=== PATIENT | male | born 1955 | race Caucasian/White ===

== ENCOUNTER 2023-07-05 13:15 | Inpatient (IN) ==
--- NOTE | 2023-07-05 13:55 | Emergency Department Note ---
Impression & Plan Pancreatitis, History of laparoscopic cholecystectomy, Transaminitis ED Provider Note NAME: JAYLEN DUNAWAY AGE: 68 SEX: M : 1955 ARRIVES VIA: Walk-In INFORMANT: Patient, ED PROVIDER(S): Vipin Vega MD CHIEF COMPLAINT: Abdominal pain MEDICAL DECISION MAKING: Patient presents due to concern for abdominal pain in the setting of recent cholecystectomy. IV was established and blood work is obtained along with CT abdomen pelvis. Patient declined any narcotic medication but did receive IV affirmative and IV fluids. Patient did receive IV Zofran. Blood shows a normal white count. The patient's kidney function is grossly unremarkable. Patient CT does show fluid collection near his NITIN drain which may be a bile leak. The patient does have pancreatitis with a lipase greater than 4000. I did speak with on-call general surgery Dr. Merino who recommended admission IV Zosyn HIDA scan and possible ERCP. I did speak the on-call hospital service CARLOS Romano the patient was admitted by Dr. Guillen. Prior /Outside records reviewed: I reviewed a discharge summary from [facility]. The patient did have a recent cholecystectomy for acalculous cholecystitis. The patient also suffered a hepatic capsule tear. Patient did have a NITIN drain in place. Differential diagnosis: Appendicitis, testicular torsion, infections, diverticulitis, UTI, obstruction, mesenteric ischemia, aortic pathology, inflammatory bowel disease, renal colic, PUD, pancreatitis, biliary pathology, hernia, volvulus, constipation, as well as other pathologies. Diagnostics, as interpreted by me: ECG: None Cardiac monitoring: An order was placed for continuous cardiac monitoring. The monitor shows a rate of 77 with sinus rhythm. Patient was placed on pulse oximetry Medical decision rules: None Imaging studies: See below I informally reviewed the patient's CT of the abdomen pelvis which does show pancreatitis. HPI: Patient presents due to concern for abdominal pain in the setting of recent cholecystectomy. The patient does have a NITIN drain in place and was told that he did have a "corrie" to the liver which required a NITIN drain and cautery. Patient states that he did go to [facility] emergency department today and did not appreciate the commentary from the emergency department physician and thus left and presented here. Patient denies any chest pains or shortness of breath he has had associated nausea but no vomiting. Patient states that he was receiving for amount of Dilaudid and morphine during his most recent hospitalization which was last week but does not want any narcotics. Patient has had bowel movements. The patient's drain has been draining appropriately. Patient describes his pain is more in the upper abdomen PAST MEDICAL HISTORY: See Below PAST SURGICAL HISTORY: See Below SOCIAL HISTORY: See Below HOME MEDICATIONS: See Below ALLERGIES: See Below VITALS: See Below PHYSICAL EXAMINATION: GENERAL: NAD, non-toxic. EYE EXAM: Normal conjunctiva. PERRL, no anisocoria and EOM's grossly intact w/o pain. OROPHARYNX: Moist mucus membranes, grossly normal dentition. NECK: Supple, no nuchal rigidity, no adenopathy, non-tender. No signs of meningismus. FROM of the neck with good chin to chest and neck extension. No stridor. LUNGS: Clear to auscultation. Normal chest wall mechanics. HEART: NSR, no MRG. ABDOMEN: Abdomen soft, diffuse moderate tenderness most prominent in the epigastrium and right upper quadrants, guarding noted. No rebound. Ecchymosis that is periumbilical in nature. Right-sided abdominal NITIN drain in place draining serosanguineous fluid not grossly bloody and no evidence of purulent drainage. BACK: No CVA TTP. SKIN: Bruising noted to the abdomen. UPPER EXTREMITIES: Upper extremities are grossly normal. LOWER EXTREMITIES: Grossly normal, no edema. NEURO EXAM: A&O x3, cranial nerves II-XII grossly intact, normal speech, moves all 4 extremities. Past Med/Surg History Medical History ADHD Beta thalassemia trait COPD (chronic obstructive pulmonary disease) Depression GERD (gastroesophageal reflux disease) Osteoporosis Paget's disease of bone Tobacco abuse Surgical History History of hernia repair History of laparoscopic cholecystectomy Social History Smoking Status: Current every day smoker Tobacco Type: Cigarettes Cigarettes Per Day: 1 1/2 packs; Second Hand Exposure: No; Do You Dip or Chew Tobacco: No; Tobacco Cessation Education Requested by Patient: No Hx Alcohol Use: No Hx Substance Use: No Preferred Language: German Communication Ability: Effective Rehabilitation Technician Required: No Beliefs That Will Affect Care: None Current Living Situation: Spouse Other Information That Helps Us Care for You: No Feels Safe at Home: Yes Safety Concerns: Feels Safe At This Time Allergies Allergies Allergy/AdvReac Type Severity Reaction Status Date / Time coffee (Coffea arabica) AdvReac Dizziness Verified 07/05/23 23:31 Home Meds Home Medications Medication Instructions Recorded Confirmed albuterol sulfate 90 mcg/actuation 1 inh inhalation DAILY PRN Wheezing 07/05/23 07/05/23 aerosol inhaler (Proventil HFA) fluticasone furoate 200 1 inh inhalation QAM 07/05/23 07/05/23 mcg-vilanterol 25 mcg/dose inhalation powder (Breo Ellipta) loratadine 10 mg tablet 10 mg PO QAM PRN Other 07/05/23 07/05/23 methylphenidate HCl 20 mg tablet 20 mg PO TID 07/05/23 07/05/23 naloxone 4 mg/actuation nasal spray See Rx Instructions .Route .COMPLEX 07/05/23 07/05/23 naproxen 500 mg tablet 500 mg PO Q12H 07/05/23 07/05/23 omeprazole 40 mg capsule,delayed 40 mg PO DAILY 07/05/23 07/05/23 release oxycodone 5 mg tablet See Rx Instructions .Route .COMPLEX 07/05/23 07/05/23 paroxetine HCl 10 mg tablet 10 mg PO DAILY 07/05/23 07/05/23 simethicone 125 mg chewable tablet 125 mg PO QID PRN other 07/05/23 07/05/23 Results & Data (ED) Vital Signs Vital Signs - 24 hr 07/05/23 13:22 07/05/23 14:23 07/05/23 14:20 Temperature 36.5 C Temperature Source Temporal Artery Scan Pulse Rate 71 76 Pulse Rate from SpO2 Sensor Respiratory Rate 19 Respiratory Effort / Characteristics Non-Labored Blood Pressure 155/66 H Blood Pressure Mean 95 Pulse Oximetry 99 98 Oxygen Delivery Method Room Air Room Air Sepsis Recent Fever Within 48 Hours No Sepsis New/Unexplained Change in Mental Status N/A Sepsis Action Taken by Nursing No Action Required 07/05/23 14:22 07/05/23 14:30 07/05/23 14:30 Temperature Temperature Source Pulse Rate 75 83 Pulse Rate from SpO2 Sensor 74 81 Respiratory Rate 20 25 H Respiratory Effort / Characteristics Blood Pressure 158/71 H Blood Pressure Mean 114 Pulse Oximetry 96 94 Oxygen Delivery Method Sepsis Recent Fever Within 48 Hours Sepsis New/Unexplained Change in Mental Status Sepsis Action Taken by Nursing 07/05/23 15:00 07/05/23 15:01 07/05/23 15:01 Temperature Temperature Source Pulse Rate 82 89 Pulse Rate from SpO2 Sensor 84 89 Respiratory Rate 22 25 H Respiratory Effort / Characteristics Blood Pressure 149/60 H Blood Pressure Mean 81 Pulse Oximetry 79 L 95 Oxygen Delivery Method Sepsis Recent Fever Within 48 Hours Sepsis New/Unexplained Change in Mental Status Sepsis Action Taken by Nursing 07/05/23 15:30 07/05/23 15:30 07/05/23 16:29 Temperature Temperature Source Pulse Rate 80 Pulse Rate from SpO2 Sensor 81 Respiratory Rate 27 H Respiratory Effort / Characteristics Blood Pressure 136/110 H 141/61 H Blood Pressure Mean 124 91 Pulse Oximetry 95 Oxygen Delivery Method Sepsis Recent Fever Within 48 Hours Sepsis New/Unexplained Change in Mental Status Sepsis Action Taken by Nursing 07/05/23 16:29 07/05/23 16:30 07/05/23 16:30 Temperature Temperature Source Pulse Rate Pulse Rate from SpO2 Sensor 90 81 Respiratory Rate Respiratory Effort / Characteristics Blood Pressure 149/88 H Blood Pressure Mean 118 Pulse Oximetry 96 95 Oxygen Delivery Method Room Air Sepsis Recent Fever Within 48 Hours Sepsis New/Unexplained Change in Mental Status Sepsis Action Taken by Group Home Medications Current Medication List: was personally reviewed by me Laboratory Data Attestation: I reviewed the patient's lab results. 07/05/23 14:17 07/05/23 14:17 Lab Results 07/05/23 07/05/23 07/05/23 Range/Units 14:17 14:17 14:25 WBC 10.57 (4.8-10.8) K/ul RBC 4.96 (4.70-6.10) M/uL Hgb 11.4 L (14.0-18.0) g/dl POC Hgb (14.0-18.0) g/dl Hct 35.1 L (42.0-52.0) % POC Hct (42-52) % MCV 70.8 L (80.0-100.0) fL MCH 23.0 L (25.0-34.0) pg MCHC 32.5 (32.0-36.0) g/dL RDW Std Deviation 39.0 (36.4-46.3) fL RDW Coeff of Jackie 15.6 H (11.5-14.5) % Plt Count 224 (130-400) K/uL MPV 12.3 (9.4-12.4) fL Immature Gran % (Auto) 0.5 % Neut % (Auto) 75.4 % Lymph % (Auto) 17.7 % Mclean % (Auto) 5.7 % Eos % (Auto) 0.5 % Baso % (Auto) 0.2 % Neut # (Auto) 7.98 H (1.40-6.50) K/uL Lymph # (Auto) 1.87 (1.2-3.4) K/uL Mclean # (Auto) 0.60 H (0.11-0.59) K/uL Eos # (Auto) 0.05 (0-0.50) K/uL Baso # (Auto) 0.02 (0-0.2) K/uL Immature Gran # (Auto) 0.05 (0.01-0.20) K/uL POC Sodium (135-144) mmol/L Sodium 139 (136-145) mmol/L POC Potassium (3.3-5.0) mmol/L Potassium 3.3 L (3.5-5.1) mmol/L POC Chloride (101-112) mmol/L Chloride 104 (98-107) mmol/L Carbon Dioxide 28 (21-32) mmol/L POC Total CO2 (24-31) mmol/L Anion Gap 7 (3-11) POC Anion Gap (16-25) mmol/L POC BUN (7-18) mg/dl BUN 12 (6-23) mg/dl Creatinine 0.81 (0.6-1.4) mg/dl POC Creatinine (0.6-1.3) mg/dl Est Cr Clr Drug Dosing 79.3 ml/min Est GFR ( Amer) 104.4 ml/min Est GFR (Non-Af Amer) 90.0 ml/min BUN/Creatinine Ratio 14.8 (10-20) Glucose 91 (70-99(Fasting)) mg/dl POC Glucose (other) (70-99) mg/dl Calcium 8.6 (8.6-10.3) mg/dl POC Ioniz Calcium Emily (1.12-1.32) mmol/l Magnesium 1.7 (1.7-2.4) mg/dl Total Bilirubin 2.5 H (0.2-1.0) mg/dl AST 496 H (13-39) U/L ALT 297 H (7-52) U/L Alkaline Phosphatase 211 H (34-104) U/L Total Protein 7.1 (6.0-8.3) gm/dl Albumin 3.7 (3.4-5.0) gm/dl Globulin 3.4 (2.5-4.0) gm/dl Albumin/Globulin Ratio 1.1 (0.9-2) Lipase 4985 H (11-82) U/L Urine Color Yellow Urine Appearance Clear (Clear) Urine pH 8.5 H (4.5-7.5) Ur Specific [place] 1.009 (1.000-1.030) Urine Protein Negative (Negative) Urine Glucose (UA) Negative (Negative) Urine Ketones Negative (Negative) Urine Blood Negative (Negative) Urine Nitrite Negative (Negative) Urine Bilirubin Negative (Negative) Urine Urobilinogen Positive H (Negative) Ur Leukocyte Esterase Negative (Negative) 07/05/23 Range/Units 14:45 WBC (4.8-10.8) K/ul RBC (4.70-6.10) M/uL Hgb (14.0-18.0) g/dl POC Hgb 12.9 L (14.0-18.0) g/dl Hct (42.0-52.0) % POC Hct 38 L (42-52) % MCV (80.0-100.0) fL MCH (25.0-34.0) pg MCHC (32.0-36.0) g/dL RDW Std Deviation (36.4-46.3) fL RDW Coeff of Jackie (11.5-14.5) % Plt Count (130-400) K/uL MPV (9.4-12.4) fL Immature Gran % (Auto) % Neut % (Auto) % Lymph % (Auto) % Mclean % (Auto) % Eos % (Auto) % Baso % (Auto) % Neut # (Auto) (1.40-6.50) K/uL Lymph # (Auto) (1.2-3.4) K/uL Mclean # (Auto) (0.11-0.59) K/uL Eos # (Auto) (0-0.50) K/uL Baso # (Auto) (0-0.2) K/uL Immature Gran # (Auto) (0.01-0.20) K/uL POC Sodium 142 (135-144) mmol/L Sodium (136-145) mmol/L POC Potassium 3.3 (3.3-5.0) mmol/L Potassium (3.5-5.1) mmol/L POC Chloride 103 (101-112) mmol/L Chloride (98-107) mmol/L Carbon Dioxide (21-32) mmol/L POC Total CO2 26 (24-31) mmol/L Anion Gap (3-11) POC Anion Gap 18.0 (16-25) mmol/L POC BUN 10 (7-18) mg/dl BUN (6-23) mg/dl Creatinine (0.6-1.4) mg/dl POC Creatinine 0.8 (0.6-1.3) mg/dl Est Cr Clr Drug Dosing ml/min Est GFR ( Amer) ml/min Est GFR (Non-Af Amer) ml/min BUN/Creatinine Ratio (10-20) Glucose (70-99(Fasting)) mg/dl POC Glucose (other) 93 (70-99) mg/dl Calcium (8.6-10.3) mg/dl POC Ioniz Calcium Emily 1.15 (1.12-1.32) mmol/l Magnesium (1.7-2.4) mg/dl Total Bilirubin (0.2-1.0) mg/dl AST (13-39) U/L ALT (7-52) U/L Alkaline Phosphatase (34-104) U/L Total Protein (6.0-8.3) gm/dl Albumin (3.4-5.0) gm/dl Globulin (2.5-4.0) gm/dl Albumin/Globulin Ratio (0.9-2) Lipase (11-82) U/L Urine Color Urine Appearance (Clear) Urine pH (4.5-7.5) Ur Specific [place] (1.000-1.030) Urine Protein (Negative) Urine Glucose (UA) (Negative) Urine Ketones (Negative) Urine Blood (Negative) Urine Nitrite (Negative) Urine Bilirubin (Negative) Urine Urobilinogen (Negative) Ur Leukocyte Esterase (Negative) Administered Medications Fluticasone/Vilanterol (Fluticasone/Vilanterol 200/25mcg 14 Puffs/Inhaler) 1 puffs INH QAM ÁNGEL Stop: 08/05/23 08:59 Last Admin: 07/06/23 08:51 Dose: 1 puffs Documented By: JAMILAH Lactated Ringer's (Lr) 1,000 mls @ 150 mls/hr IV .Q6H40M ÁNGEL Stop: 08/04/23 19:02 Last Admin: 07/06/23 08:51 Dose: 150 mls/hr Documented By: Infusion: 07/06/23 08:51 Dose: 150 mls/hr Documented By: Admin: 07/06/23 02:27 Dose: 150 mls/hr Documented By: Infusion: 07/06/23 02:27 Dose: 150 mls/hr Documented By: Admin: 07/05/23 19:56 Dose: 150 mls/hr Documented By: ERNIE Piperacillin Sod/Tazobactam (Sod 4.5 gm/ Dextrose) 120 mls @ 30 mls/hr IV Q8H ÁNGEL; Protocol Stop: 07/16/23 00:00 Last Admin: 07/06/23 07:49 Dose: 30 mls/hr Documented By: Infusion: 07/06/23 03:58 Dose: 0 mls/hr Documented By: Admin: 07/05/23 23:58 Dose: 30 mls/hr Documented By: ERNIE Methylphenidate HCl (Methylphenidate Hcl 10 Mg Tablet) 20 mg PO TID@0700,1100,1500 ÁNGEL Stop: 07/19/23 20:59 Last Admin: 07/06/23 08:52 Dose: Not Given Documented By: JAMILAH Paroxetine HCl (Paroxetine Hcl 10 Mg Tab) 10 mg PO DAILY ÁNGEL Stop: 08/05/23 08:59 Last Admin: 07/06/23 08:52 Dose: 10 mg Documented By: JAMILAH Discontinued Medications Sodium Chloride (Nss 1000ml) 1,000 mls @ 999 mls/hr IV .Q1H1M STA Stop: 07/05/23 15:20 Last Infusion: 07/05/23 16:18 Dose: 0 mls/hr Documented By: Admin: 07/05/23 14:45 Dose: 999 mls/hr Documented By: ENRICO Acetaminophen (Ofirmev) 1,000 mg in 100 mls @ 400 mls/hr IV NOW STA Stop: 07/05/23 14:34 Last Infusion: 07/05/23 16:17 Dose: 0 mls/hr Documented By: Admin: 07/05/23 14:47 Dose: 400 mls/hr Documented By: ENRICO Piperacillin Sod/Tazobactam Sod (Zosyn) 4.5 gm in 120 mls @ 240 mls/hr IV NOW ONE Stop: 07/05/23 16:55 Last Infusion: 07/05/23 18:21 Dose: 0 mls/hr Documented By: Admin: 07/05/23 17:47 Dose: 240 mls/hr Documented By: ENRICO Potassium Chloride (K Amadou / Wtr) 10 meq in 100 mls @ 100 mls/hr IV Q1H ÁNGEL Stop: 07/05/23 21:59 Last Infusion: 07/06/23 00:00 Dose: 0 mls/hr Documented By: Admin: 07/05/23 22:58 Dose: 100 mls/hr Documented By: Infusion: 07/05/23 22:57 Dose: 100 mls/hr Documented By: Admin: 07/05/23 21:57 Dose: 100 mls/hr Documented By: Infusion: 07/05/23 21:57 Dose: 100 mls/hr Documented By: Admin: 07/05/23 20:59 Dose: 100 mls/hr Documented By: Infusion: 07/05/23 20:56 Dose: 100 mls/hr Documented By: Admin: 07/05/23 19:56 Dose: 100 mls/hr Documented By: EGMaile Ioversol (Optiray 320 100ml) 92 ml IV ONCE ONE Stop: 07/05/23 15:16 Last Admin: 07/05/23 15:15 Dose: 92 ml Documented By: MARCOS Ondansetron HCl (Ondansetron Inj 2 Mg/Ml 2 Ml Vial) 4 mg IV NOW STA Stop: 07/05/23 14:21 Last Admin: 07/05/23 14:46 Dose: 4 mg Documented By: ENRICO Imaging Data Radiologist's Impression: Abdomen/Pelvis CT 07/05/23 14:[address] WITH IV CONTRAST CT DOSE: 1042.06 mGy.cm HISTORY: Acute right upper quadrant abdominal pain h/o of payton and post op bleeding, NITIN in place TECHNIQUE: Multiaxial CT images of the abdomen and pelvis were performed following the IV administration of 92 cc of Optiray, A dose lowering technique was utilized adhering to the principles of ALARA. COMPARISON STUDY: None. FINDINGS: Mild subsegmental bibasilar atelectasis/scarring. A few scattered low suspicion solid pulmonary nodules measuring up to 3 mm. Trace right pleural effusion. Unremarkable spleen and adrenal glands. Mild interstitial peripancreatic edema of the pancreatic head, uncinate process and neck. Mild wall thickening of the distal stomach and duodenum. There are a few subcentimeter hypodensities noted within the liver which are too small to characterize and may represent cysts. Patent portal vein. Cholecystectomy clips within the maryan hepatis. Mild wall thickening and enhancement within the common bile duct. Postoperative fluid collection within the maryan hepatis measures 5.3 x 7.6 x 3.5 cm containing a few foci of air. Surg ical drainage catheter courses along the anterior aspect of this collection with distal tip projected superiorly. Additional trace fluid tracks along the pancreatic or duodenal groove and into the right paracolic gutter. There are a few nonobstructing calculi in the left kidney measuring up to 3 mm. Bilateral renal cysts. No hydronephrosis. Prostatomegaly. Moderate bladder wall thickening with partial distention. Atherosclerosis of the aorta. Retroaortic left renal vein. No lymphadenopathy. Tiny hiatal hernia with mild distal esophageal wall thickening. Moderate fecal retention. Normal appendix. No acute fracture. Pagetoid changes of the right bony pelvis. IMPRESSION: 1. Postoperative changes compatible with recent laparoscopic cholecystectomy. There is a postoperative fluid collection within the maryan hepatis measuring up to 7.6 cm with a surgical drainage catheter coursing along the anterior aspect of the collection. Findings could be correlated with nuclear medicine hepatobil iary scan if there is clinical concern for a bile leak. 2. Findings suggestive of associated mild acute pancreatitis. 3. Borderline enlarged lymph nodes within the maryan hepatis are likely reactive. 4. No bowel obstruction. 5. Normal appendix. 6. Left nephrolithiasis. 7. Trace right pleural effusion. 8. Pagetoid osseous changes of the bony pelvis. ACT 112: Negative or not required by law. The above report was generated using voice recognition software. It may contain grammatical, syntax or spelling errors. Electronically signed by: Amauri Salter M.D. 07/05/2023 3:48 PM Discharge Plan Visit Data Chief Complaint: Abdominal Pain Stated Complaint: JUST HAD SURGURY, PAIN IN ABDOMEN, PAIN IN BACK ED Provider: Vipin Vega Discharge Problem: Pancreatitis, History of laparoscopic cholecystectomy, Transaminitis Patient Disposition: Admitted As Inpatient Discharge Instructions Interventions: ED Discharge Assessment Last Done: 07/05/23 18:06
[2023-07-05] MEDS ORDERED: ACETAMINOPHEN 1,000 MG/100 ML VIAL IV STA (14:20)
[2023-07-05] MEDS ORDERED: SODIUM CHLORIDE 0.9% 1,000 ML IV STA (14:20)
[2023-07-05] MEDS ORDERED: ONDANSETRON INJ 2 MG/ML 2 ML VIAL IV STA (14:20)
[2023-07-05 14:37] LABS: Basophils # (auto) 0.02 K/uL (0-0.2); Basophils % (auto) 0.2 %; Eosinophils # (auto) 0.05 K/uL (0-0.50); Eosinophils % (auto) 0.5 %; Hematocrit (blood only) 35.1 % (42.0-52.0); Hemoglobin 11.4 g/dl (14.0-18.0); Immature Granulocytes # (auto) 0.05 K/uL (0.01-0.20); Immature Granulocytes % (auto) 0.5 %; Lymphocytes # (auto) 1.87 K/uL (1.2-3.4); Lymphocytes % (auto) 17.7 %; Mean Corpuscular Hgb Conc 32.5 g/dL (32.0-36.0); Mean Corpuscular Volume 70.8 fL (80.0-100.0); Mean Platelet Volume 12.3 fL (9.4-12.4); Monocytes % (auto) 5.7 %; Neutrophils # (auto) 7.98 K/uL (1.40-6.50); Neutrophils % (auto) 75.4 %; Platelet Count 224 K/uL (130-400); RDW Coefficient of Variation 15.6 % (11.5-14.5); Red Blood Count 4.96 M/uL (4.70-6.10); White Blood Count 10.57 K/ul (4.8-10.8)
[2023-07-05 14:39] LABS: Appearance Urine Clear (Clear); Bilirubin Urine Negative (Negative); Blood Urine Negative (Negative); Color Urine Yellow; Glucose Urine UA Negative (Negative); Ketones Urine Negative (Negative); Leukocyte Esterase Urine Negative (Negative); Nitrite Urine Negative (Negative); Protein Urine Negative (Negative); Specific Gravity Urine 1.009 (1.000-1.030); Urobilinogen Urine Positive (Negative); pH Urine 8.5 (4.5-7.5)
[2023-07-05 14:52] LABS: Albumin Level 3.7 gm/dl (3.4-5.0); Bilirubin,Total 2.5 mg/dl (0.2-1.0); Calcium 8.6 mg/dl (8.6-10.3); Potassium 3.3 mmol/L (3.5-5.1)
[2023-07-05 14:58] LABS: BUN Creatinine Ratio 14.8 (10-20); Creatinine Clr Calc Pharmacy 79.3 ml/min; Est GFR (African American) 104.4 ml/min
[2023-07-05] MEDS ORDERED: OPTIRAY 320 100ml IV ONE (15:15)
[2023-07-05 15:49] LABS: Albumin Globulin Ratio 1.1 (0.9-2); Globulin 3.4 gm/dl (2.5-4.0); Total Protein 7.1 gm/dl (6.0-8.3)
--- NOTE | 2023-07-05 15:50 | CT Scan Report ---
ABDOMEN AND PELVIS CT WITH IV CONTRAST CT DOSE: 1042.06 mGy.cm HISTORY: Acute right upper quadrant abdominal pain h/o of payton and post op bleeding, NITIN in place TECHNIQUE: Multiaxial CT images of the abdomen and pelvis were performed following the IV administrat ion of 92 cc of Optiray, A dose lowering technique was utilized adhering to the principles of ALARA. COMPARISON STUDY: None. FINDINGS: Mild subsegmental bibasilar atelectasis/scarring. A few scattered low suspicion solid pulmonary nodul es measuring up to 3 mm. Trace right pleural effusion. Unremarkable spleen and adrenal glands. Mild i nterstitial peripancreatic edema of the pancreatic head, uncinate process and neck. Mild wall thicken ing of the distal stomach and duodenum. There are a few subcentimeter hypodensities noted within the liver which are too small to characterize and may represent cysts. Patent portal vein. Cholecystectomy clips within the maryan hepatis. Mild wall thickening and enhancement within the commo n bile duct. Postoperative fluid collection within the maryan hepatis measures 5.3 x 7.6 x 3.5 cm cont aining a few foci of air. Surgical drainage catheter courses along the anterior aspect of this collec tion with distal tip projected superiorly. Additional trace fluid tracks along the pancreatic or duod enal groove and into the right paracolic gutter. There are a few nonobstructing calculi in the left kidney measuring up to 3 mm. Bilateral renal cysts . No hydronephrosis. Prostatomegaly. Moderate bladder wall thickening with partial distention. Athero sclerosis of the aorta. Retroaortic left renal vein. No lymphadenopathy. Tiny hiatal hernia with mild distal esophageal wall thickening. Moderate fecal retention. Normal appendix. No acute fracture. Pag etoid changes of the right bony pelvis. IMPRESSION: 1. Postoperative changes compatible with recent laparoscopic cholecystectomy. There is a postoperativ e fluid collection within the maryan hepatis measuring up to 7.6 cm with a surgical drainage catheter coursing along the anterior aspect of the collection. Findings could be correlated with nuclear medic ine hepatobiliary scan if there is clinical concern for a bile leak. 2. Findings suggestive of associated mild acute pancreatitis. 3. Borderline enlarged lymph nodes within the maryan hepatis are likely reactive. 4. No bowel obstruction. 5. Normal appendix. 6. Left nephrolithiasis. 7. Trace right pleural effusion. 8. Pagetoid osseous changes of the bony pelvis. ACT 112: Negative or not required by law. The above report was generated using voice recognition software. It may contain grammatical, syntax o r spelling errors. Electronically signed by: Amauri Salter M.D. 07/05/2023 3:48 PM
[2023-07-05] MEDS ORDERED: PIPERACILLIN/TAZOBACTAM 4.5 GM/120 ML BAG IV ONE (16:26)
[2023-07-05 18:43] LABS: Magnesium 1.7 mg/dl (1.7-2.4)
--- NOTE | 2023-07-05 18:46 | History & Physical Report ---
Date of Service July 05, 2023 Assessment & Plan (1) History of laparoscopic cholecystectomy: (2) Transaminitis: (3) Pancreatitis: Plan: Admit to [facility] Patient presenting from home with reports of abdominal pain. S/p laparoscopic cholecystectomy on 07/[address] Aguilera at [facility]. In the ED, patient found to have transaminitis and elevated lipase. CT ABD/pelvis showing postoperative changes compatible with recent laparoscopic cholecystectomy. There is a postoperative fluid collection within the maryan hepatis measuring up to 7.6 cm with a surgical drainage catheter coursing along the anterior aspect of the collection. Findings could be correlated with nuclear medicine hepatobiliary scan if there is clinical concern for a bile leak. Findings suggestive of associated mild acute pancreatitis. N.p.o., IVF, pain and nausea control Obtain HIDA scan General surgery consult, case discussed with Dr. Merino If HIDA scan shows bile leak, will need GI consult and ERCP S/p Zosyn in the ED, continue with (4) COPD (chronic obstructive pulmonary disease): (5) Tobacco abuse: Plan: No signs of acute exacerbation Tobacco cessation advised, nicotine patch provided (6) GERD (gastroesophageal reflux disease): Plan: IV PPI (7) ADHD: (8) Depression: Plan: Stable, continue methylphenidate and paroxetine DVT PROPHYLAXIS SCDs in the event patient needs invasive procedure Patient seen in collaboration with Dr. Guillen. I spent a total of 75 minutes coordinating, documenting, and providing care for this patient excluding time spent in the performance of separately billed services. This included personally reviewing all current laboratories and imaging studies, medication reconciliation, outpatient chart review, and discussion with specialists. History of Present Illness Chief Complaint: Abdominal pain Primary Care Provider: Yelitza Pendleton PA-C 68-year-old male with PMH COPD, tobacco abuse, GERD, osteoporosis, Paget disease, depression, ADHD, beta thalassemia trait, and other problems as below who presents to the ED for evaluation of abdominal pain. History obtained from the patient and at the bedside as well as review of outpatient PCP and recent inpatient records. Patient seen at [facility] ED on 06/30 for abdominal pain and was diagnosed with biliary colic. Patient previously scheduled for elective cholecystectomy later in the year. Was evaluated by general surgery on 06/30 who felt it was reasonable to maintain that plan. Patient's abdominal pain returned, he called the surgeon's office, who subsequently directly admitted him for laparoscopic cholecystectomy on 07/02. Patient did have a capsular tear in the surgery and was monitored for 24 hours and was discharged home on 07/04 with NITIN drain in place. Patient reports that this morning at 7 AM, he had sudden onset abdominal pain. Patient describes the pain as diffuse. He reports associated nausea however no vomiting. He reports feeling chills however did not take his temperature. He was initially seen at [facility] ED however eloped and came to [facility] for evaluation. Patient denies chest pain or shortness of breath. No lightheadedness, dizziness, diaphoresis, syncopal events. He denies urinary symptoms. In the ED, patient is hemodynamically stable. Labs show WBC 10.5 K, transaminitis, lipase 4900. CT ABD/pelvis shows Postoperative changes compatible with recent laparoscopic cholecystectomy. There is a postoperative fluid collection within the maryan hepatis measuring up to 7.6 cm with a surgical drainage catheter coursing along the anterior aspect of the collection. Findings could be correlated with nuclear medicine hepatobiliary scan if there is clinical concern for a bile leak. Findings suggestive of associated mild acute pancreatitis. Patient was given IV Tylenol, IV Zofran, IV Zosyn, IVF. Home Medications Medication Instructions Recorded Confirmed Type albuterol sulfate 90 mcg/actuation 1 inh inhalation DAILY PRN Wheezing 07/05/23 07/05/23 History aerosol inhaler (Proventil HFA) fluticasone furoate 200 1 inh inhalation QAM 07/05/23 07/05/23 History mcg-vilanterol 25 mcg/dose inhalation powder (Breo Ellipta) loratadine 10 mg tablet 10 mg PO QAM PRN Other 07/05/23 07/05/23 History methylphenidate HCl 20 mg tablet 20 mg PO TID 07/05/23 07/05/23 History naloxone 4 mg/actuation nasal spray See Rx Instructions .Route .COMPLEX 07/05/23 07/05/23 History naproxen 500 mg tablet 500 mg PO Q12H 07/05/23 07/05/23 History omeprazole 40 mg capsule,delayed 40 mg PO DAILY 07/05/23 07/05/23 History release oxycodone 5 mg tablet See Rx Instructions .Route .COMPLEX 07/05/23 07/05/23 History paroxetine HCl 10 mg tablet 10 mg PO DAILY 07/05/23 07/05/23 History simethicone 125 mg chewable tablet 125 mg PO QID PRN other 07/05/23 07/05/23 History Past Med/Surg History Medical History (Updated 07/05/23 @ 20:22 by CARLOS Tapia) ADHD Beta thalassemia trait COPD (chronic obstructive pulmonary disease) Depression GERD (gastroesophageal reflux disease) Osteoporosis Paget's disease of bone Tobacco abuse Surgical History History of hernia repair History of laparoscopic cholecystectomy Social History Smoking Status: Current every day smoker Tobacco Type: Cigarettes Cigarettes Per Day: 1 1/2 packs; Second Hand Exposure: No; Do You Dip or Chew Tobacco: No; Tobacco Cessation Education Requested by Patient: No Hx Alcohol Use: No Hx Substance Use: No Preferred Language: Swedish Communication Ability: Effective Supervisor Malted Milk Required: No Beliefs That Will Affect Care: None Current Living Situation: Spouse Other Information That Helps Us Care for You: No Feels Safe at Home: Yes Safety Concerns: Feels Safe At This Time Review of Systems Review of Systems: ROS per HPI, all other systems reviewed and negative Physical Exam Constitutional: WD/WN, vitals as above Eyes: PERRL, conjunctivae normal, anicteric sclerae ENMT: external ear and nose normal, oropharynx normal Respiratory: normal respiratory effort, lungs clear to auscultation Cardiovascular: Rate/Rhythm: regular rate and regular rhythm Vessels: normal peripheral pulses Extremities: no edema Gastrointestinal (Abdomen): Inspection/Auscultation: normal bowel sounds Percussion/Palpation: + abdomen tender (diffusely tender to palpation) and abdomen soft RUQ Drain in place draining serosanguineous drainage, dressings present over laparoscopic incision sites, ecchymosis across the mid/lower abdomen Musculoskeletal: no cyanosis or clubbing, extremities motor strength 5/5 Skin: no rashes, warm and dry Neurologic: PERRL, EOMI, accommodation nl, no face palsy, no dysarthria Psychiatric: A+Ox3, euthymic affect Results & Data Results & Data Vital Signs (Past 12 Hours) Vital Signs Temp Pulse Resp BP Pulse Ox O2 Del Method 07/05/23 18:00 94 Room Air 07/05/23 18:00 121/68 07/05/23 17:30 96 07/05/23 17:01 120/64 07/05/23 17:00 96 07/05/23 16:30 95 Room Air 07/05/23 16:30 149/88 H 07/05/23 16:29 96 07/05/23 16:29 141/61 H 07/05/23 15:30 80 27 H 95 07/05/23 15:30 136/110 H 07/05/23 15:01 89 25 H 95 07/05/23 15:01 149/60 H 07/05/23 15:00 82 22 79 L 07/05/23 14:30 83 25 H 94 07/05/23 14:30 158/71 H 07/05/23 14:22 75 20 96 07/05/23 14:20 98 Room Air 07/05/23 14:23 76 07/05/23 13:22 36.5 C 71 19 155/66 H 99 Room Air Code Status & VTE Plan VTE Prophylaxis Plan VTE Prophylaxis will be ordered: Yes Supervising Physician Co-Signing Physician Notes Mr. Beckett is a 68-year-old male with PMHx including but not limited to COPD, tobacco abuse, GERD, osteoporosis, Paget disease, depression, ADHD, beta thalassemia trait. He presented with complaint of abdominal pain. History obtained from the patient and at the bedside, review of outpatient PCP and recent inpatient records. Pt recently underwent lap payton (07/02) d/t recurrent biliary colic. Procedure was c/b a capsular tear. NITIN drain was placed and pt was monitored for 24 hours postop. On the day of presentation, at 7 AM, he had sudden onset of diffuse abdominal pain associated nausea but no vomiting. This was also associated with chills. He was initially seen at [facility] (where the surgery was done) ED however he eloped and came to [facility] for evaluation. He denies dizziness, lightheadedness, f/v, CP, sob, cough, congestion, diarrhea, and dysuria. He was giving some nonsensical answers throughout our interview. His seems to thing his mental status has been off since the first episode of biliary colic. It improves when he is on antibiotics but has not returned to baseline. ED course HDS, afebrile b/w notable for WBC 10.5 K, transaminitis, lipase 4900. CT ABD/pelvis shows Postoperative changes compatible with recent laparoscopic cholecystectomy. There is a postoperative fluid collection within the maryan hepatis measuring up to 7.6 cm with a surgical drainage catheter coursing along the anterior aspect of the collection. Findings could be correlated with nuclear medicine hepatobiliary scan if there is clinical concern for a bile leak. Findings suggestive of associated mild acute pancreatitis. Patient was given IV Tylenol, IV Zofran, IV Zosyn, IVF. Admitted to hospitalist service. General: NAD, well nourished, non-toxic appearing Head: NC AT Eyes: anicteric sclera, no conjunctival injection Nose: nares patent Mouth: MMM Neck: supple, trachea midline CV: RRR S1 S2 Pulm: CTA b/l, normal effort Abd/GI: + BS, soft, diffuse TTP, ND, no guarding. NITIN drain in place with a small amount of serosanguineous drainage, dressings present over laparoscopic incision sites, ecchymosis across the mid/lower abdomen : no bajwa Ext: no pretibial edema MSK: normal bulk and tone Neuro: alert, moving all 4 extremities symmetrically Psych: pleasant mood and affect Skin: abdomen as above, otherwise visible skin is warm, dry, and without rash. Pt not fully undressed for exam. # abd pain: c/f bile leak vs pancreatitis HIDA scan pending, if compatible with a bile leak will need GI consult and ERCP f/u cultures, continue zosyn for now NPO , IVF, analgesia surgery consulted # transaminitis: expected s/p lap payton trend as above under abd pain # COPD: no acute exacerbation, continue home regimen Rest per attested note above.
[2023-07-05] MEDS ORDERED: MoRPHine SULFATE 4 MG/ML 1 ML CARP\\VIAL IV PRN (19:03)
[2023-07-05] MEDS ORDERED: ONDANSETRON INJ 2 MG/ML 2 ML VIAL IV PRN (19:03)
[2023-07-05] MEDS ORDERED: ACETAMINOPHEN 325 MG TAB PO PRN (19:03)
[2023-07-05] MEDS ORDERED: oxyCODONE HCL IR 5 MG TAB (IMMEDIATE RELEASE) PO PRN (19:03)
[2023-07-05] MEDS: POTASSIUM CHLORIDE / WTR 10 MEQ/100 ML PLCT IV SCH ×4 (19:56→22:58)
[2023-07-05] MEDS: LACTATED RINGER'S 1,000 ML IV SCH (19:56)
[2023-07-05] MEDS ORDERED: METHYLPHENIDATE HCL 10 MG TABLET PO SCH (21:00)
[2023-07-05] MEDS: PIPERACILLIN/TAZOBACTAM 4.5 GM in DEXTROSE 5% 100 ML IV SCH (23:58)
[2023-07-06 00:43] LABS: iSTAT Creatinine 0.8 mg/dl (0.6-1.3); iSTAT Hemoglobin 12.9 g/dl (14.0-18.0); iSTAT Ionized Calcium 1.15 mmol/l (1.12-1.32); iSTAT Potassium 3.3 mmol/L (3.3-5.0)
[2023-07-06] MEDS: LACTATED RINGER'S 1,000 ML IV SCH ×4 (02:27→22:11)
[2023-07-06 07:09] LABS: Hematocrit (blood only) 31.3 % (42.0-52.0); Hemoglobin 10.6 g/dl (14.0-18.0); Mean Corpuscular Hemoglobin 23.1 pg (25.0-34.0); Mean Corpuscular Hgb Conc 33.9 g/dL (32.0-36.0); Mean Corpuscular Volume 68.3 fL (80.0-100.0); Mean Platelet Volume 12.2 fL (9.4-12.4); Platelet Count 212 K/uL (130-400); RDW Coefficient of Variation 15.5 % (11.5-14.5); RDW Standard Deviation 37.8 fL (36.4-46.3); Red Blood Count 4.58 M/uL (4.70-6.10); White Blood Count 9.94 K/ul (4.8-10.8)
[2023-07-06 07:33] LABS: Albumin Globulin Ratio 1.2 (0.9-2); Albumin Level 3.3 gm/dl (3.4-5.0); BUN Creatinine Ratio 13.7 (10-20); Bilirubin,Total 3.8 mg/dl (0.2-1.0); Calcium 8.5 mg/dl (8.6-10.3); Est GFR (African American) 108.9 ml/min; Globulin 2.8 gm/dl (2.5-4.0); Potassium 3.7 mmol/L (3.5-5.1); Total Protein 6.1 gm/dl (6.0-8.3)
[2023-07-06] MEDS: PIPERACILLIN/TAZOBACTAM 4.5 GM in DEXTROSE 5% 100 ML IV SCH ×2 (07:49→15:36)
[2023-07-06] MEDS: FLUTICASONE/VILANTEROL 200/25MCG 14 PUFFS/INHALER INH SCH (08:51)
[2023-07-06] MEDS: METHYLPHENIDATE HCL 10 MG TABLET PO SCH ×3 (08:52→15:36)
[2023-07-06] MEDS: PARoxetine HCL 10 MG TAB PO SCH (08:52)
--- NOTE | 2023-07-06 09:27 | Gastrointestinal Consultation ---
Date of Consultation July 06, 2023 Assessment & Plan (1) Pancreatitis: Pleasant man with pain post cholecystectomy, fluid collection on CT and transaminitis. Sounds suggestive of bile leak but with history of capsular tear could be related to that. Will set up for ERCP with Dr. Pagan tomorrow but he may request HIDA scan first. History of Present Illness Reason for Consultation: possible bile leak Attending Physician: Malcolm Mayes MD History of Present Illness 68 year old man had lap payton complicated by capsular tear on 07/02. He went home with persistent pain and returned to hospital here found to have elevated LFT's and a 7.6 cm subhepatic fluid collection with mild pancreatitis. He has never had stomach issues before. Allergies Allergy/AdvReac Type Severity Reaction Status Date / Time coffee (Coffea arabica) AdvReac Dizziness Verified 07/05/23 23:31 Home Medications Medication Instructions Recorded Confirmed Type albuterol sulfate 90 mcg/actuation 1 inh inhalation DAILY PRN Wheezing 07/05/23 07/05/23 History aerosol inhaler (Proventil HFA) fluticasone furoate 200 1 inh inhalation QAM 07/05/23 07/05/23 History mcg-vilanterol 25 mcg/dose inhalation powder (Breo Ellipta) loratadine 10 mg tablet 10 mg PO QAM PRN Other 07/05/23 07/05/23 History methylphenidate HCl 20 mg tablet 20 mg PO TID 07/05/23 07/05/23 History naloxone 4 mg/actuation nasal spray See Rx Instructions .Route .COMPLEX 07/05/23 07/05/23 History naproxen 500 mg tablet 500 mg PO Q12H 07/05/23 07/05/23 History omeprazole 40 mg capsule,delayed 40 mg PO DAILY 07/05/23 07/05/23 History release oxycodone 5 mg tablet See Rx Instructions .Route .COMPLEX 07/05/23 07/05/23 History paroxetine HCl 10 mg tablet 10 mg PO DAILY 07/05/23 07/05/23 History simethicone 125 mg chewable tablet 125 mg PO QID PRN other 07/05/23 07/05/23 History Patient History Medical History ADHD Beta thalassemia trait COPD (chronic obstructive pulmonary disease) Depression GERD (gastroesophageal reflux disease) Osteoporosis Paget's disease of bone Tobacco abuse Surgical History History of hernia repair History of laparoscopic cholecystectomy Social History Smoking Status: Current every day smoker Tobacco Type: Cigarettes Cigarettes Per Day: 1 1/2 packs; Second Hand Exposure: No; Do You Dip or Chew Tobacco: No; Tobacco Cessation Education Requested by Patient: No Hx Alcohol Use: No Hx Substance Use: No Preferred Language: German Communication Ability: Effective Car Salter Required: No Beliefs That Will Affect Care: None Current Living Situation: Spouse Other Information That Helps Us Care for You: No Feels Safe at Home: Yes Safety Concerns: Feels Safe At This Time Review of Systems Review of Systems: All systems reviewed & are unremarkable except as noted in HPI & below Physical Exam Constitutional: WD/WN, vitals as above Eyes: PERRL, conjunctivae normal, anicteric sclerae Neck: trachea midline, no thyromegaly Respiratory: normal respiratory effort, lungs clear to auscultation Cardiovascular: RRR, no murmur, no edema Gastrointestinal (Abdomen): normal bowel sounds, soft, nontender, no hepatosplenomegaly (drain in place) Results & Data Vital Signs (Past 12 Hours) Vital Signs Temp Pulse Resp BP Pulse Ox O2 Del Method 07/06/23 07:40 36.7 C 65 16 119/69 94 Room Air 07/05/23 22:20 36.7 C 62 18 110/60 94 Room Air Laboratory Results 07/05/23 07/05/23 07/05/23 14:17 14:17 14:25 WBC 10.57 RBC 4.96 Hgb 11.4 L POC Hgb Hct 35.1 L POC Hct MCV 70.8 L MCH 23.0 L MCHC 32.5 RDW Std Deviation 39.0 RDW Coeff of Jackie 15.6 H Plt Count 224 MPV 12.3 Immature Gran % (Auto) 0.5 Neut % (Auto) 75.4 Lymph % (Auto) 17.7 [place] % (Auto) 5.7 Eos % (Auto) 0.5 Baso % (Auto) 0.2 Neut # (Auto) 7.98 H Lymph # (Auto) 1.87 [place] # (Auto) 0.60 H Eos # (Auto) 0.05 Baso # (Auto) 0.02 Immature Gran # (Auto) 0.05 POC Sodium Sodium 139 POC Potassium Potassium 3.3 L POC Chloride Chloride 104 Carbon Dioxide 28 POC Total CO2 Anion Gap 7 POC Anion Gap POC BUN BUN 12 Creatinine 0.81 POC Creatinine Est Cr Clr Drug Dosing 79.3 Est GFR ( Amer) 104.4 Est GFR (Non-Af Amer) 90.0 BUN/Creatinine Ratio 14.8 Glucose 91 POC Glucose (other) Calcium 8.6 POC Ioniz Calcium Emily Magnesium 1.7 Total Bilirubin 2.5 H AST 496 H ALT 297 H Alkaline Phosphatase 211 H Total Protein 7.1 Albumin 3.7 Globulin 3.4 Albumin/Globulin Ratio 1.1 Lipase 4985 H Urine Color Yellow Urine Appearance Clear Urine pH 8.5 H Ur Specific [place] 1.009 Urine Protein Negative Urine Glucose (UA) Negative Urine Ketones Negative Urine Blood Negative Urine Nitrite Negative Urine Bilirubin Negative Urine Urobilinogen Positive H Ur Leukocyte Esterase Negative 07/05/23 07/06/23 07/06/23 14:45 05:39 05:39 WBC 9.94 RBC 4.58 L Hgb 10.6 L POC Hgb 12.9 L Hct 31.3 L POC Hct 38 L MCV 68.3 L MCH 23.1 L MCHC 33.9 RDW Std Deviation 37.8 RDW Coeff of Jackie 15.5 H Plt Count 212 MPV 12.2 Immature Gran % (Auto) Neut % (Auto) Lymph % (Auto) [place] % (Auto) Eos % (Auto) Baso % (Auto) Neut # (Auto) Lymph # (Auto) [place] # (Auto) Eos # (Auto) Baso # (Auto) Immature Gran # (Auto) POC Sodium 142 Sodium 140 POC Potassium 3.3 Potassium 3.7 POC Chloride 103 Chloride 109 H Carbon Dioxide 24 POC Total CO2 26 Anion Gap 7 POC Anion Gap 18.0 POC BUN 10 BUN 10 Creatinine 0.73 POC Creatinine 0.8 Est Cr Clr Drug Dosing 88.0 Est GFR ( Amer) 108.9 Est GFR (Non-Af Amer) 94.0 BUN/Creatinine Ratio 13.7 Glucose 71 POC Glucose (other) 93 Calcium 8.5 L POC Ioniz Calcium Emily 1.15 Magnesium Total Bilirubin 3.8 H D AST 201 H ALT 233 H Alkaline Phosphatase 168 H Total Protein 6.1 Albumin 3.3 L Globulin 2.8 Albumin/Globulin Ratio 1.2 Lipase 166 H Urine Color Urine Appearance Urine pH Ur Specific [place] Urine Protein Urine Glucose (UA) Urine Ketones Urine Blood Urine Nitrite Urine Bilirubin Urine Urobilinogen Ur Leukocyte Esterase Diagnostic Findings Abdomen/Pelvis CT 07/05/23 14:[address] WITH IV CONTRAST CT DOSE: 1042.06 mGy.cm HISTORY: Acute right upper quadrant abdominal pain h/o of payton and post op bleeding, NITIN in place TECHNIQUE: Multiaxial CT images of the abdomen and pelvis were performed fo llowing the IV administration of 92 cc of Optiray, A dose lowering technique was utilized adhering to the principles of ALARA. COMPARISON STUDY: None. FINDINGS: Mild subsegmental bibasilar atelectasis/scarring. A few scattered low suspicion solid pulmonary nodules measuring up to 3 mm. Trace right pleural effusion. Unremarkable spleen and adrenal glands. Mild interstitial peripancreatic edema of the pancreatic head, uncinate process and neck. Mild wall thickening of the distal stomach and duodenum. There are a few subcentimeter hypodensities noted within the liver which are too small to characterize and may represent cysts. Patent portal vein. Cholecystectomy clips within the maryan hepatis. Mild wall thickening and enhancement within the common bile duct. Postoperative fluid collection within the maryan hepatis measures 5.3 x 7.6 x 3.5 cm containing a few foci of air. Surgical drainage catheter courses along the anterior aspect of this collection with distal tip projected superiorly. Additional trace fluid tracks along the pancreatic or duodenal groove and into the right paracolic gutter. There are a few nonobstructing calculi in the left kidney measuring up to 3 mm. Bilateral renal cysts. No hydronephrosis. Prostatomegaly. Moderate bladder wall thickening with partial distention. Atherosclerosis of the aorta. Retroaortic left renal vein. No lymphadenopathy. Tiny hiatal hernia with mild distal esophageal wall thickening. Moderate fecal retention. Normal appendix. No acute fracture. Pagetoid changes of the right bony pelvis. IMPRESSION: 1. Postoperative changes compatible with recent laparoscopic cholecystectomy. There is a postoperative fluid collection within the maryan hepatis measuring up to 7.6 cm with a surgical drainage catheter coursing along the anterior aspect of the collection. Findings could be correlated with nuclear medicine hepatobiliary scan if there is clinical concern for a bile leak. 2. Findings suggestive of associated mild acute pancreatitis. 3. Borderline enlarged lymph nodes within the maryan hepatis are likely reactive. 4. No bowel obstruction. 5. Normal appendix. 6. Left nephrolithiasis. 7. Trace right pleural effusion. 8. Pagetoid osseous changes of the bony pelvis. ACT 112: Negative or not required by law. The above report was generated using voice recognition software. It may contain grammatical, syntax or spelling errors. Electronically signed by: Amauri Salter M.D. 07/05/2023 3:48 PM
--- NOTE | 2023-07-06 09:58 | Surgery Consultation ---
Date of Consultation July 06, 2023 Assessment & Plan (1) History of laparoscopic cholecystectomy: This is a 68yM with a PMH of tobacco abuse, COPD, GERD, ADHD, depression and recent lap payton last week at [facility] who presents to the [facility] ED on 07/05/23 with complaints of abdominal pain. A CT a/p was obtained that revealed a postoperative fluid collection within the maryan hepatis measuring up to 7.6 cm with a surgical drainage catheter coursing along the anterior aspect of the collection. Also with findings suggestive of associated mild acute pancreatitis. Labs today revealed WBC 9.9, Hbg 10, Tb 3.8, AST 201, ALT 233, lipase 166. Vital signs are stable. On examination patient's abdomen is soft, with ecchymosis noted kaiden incisionally, and NITIN drain with serosanguineous drainage (non bilious). CT scan with findings of fluid collection in maryan hepatitis...cannot rule out bile leak vs capsular tear. Would obtain HIDA scan tomorrow for further evaluation. GI input given elevated LFTs and possibility of bile leak for consideration of ERCP. Would keep NPO/IVF/IV abx today. No indication for surgical intervention. Will follow. (2) Transaminitis: Supervising Physician Co-Signing Physician Notes I personally saw and evaluated the patient with Gayle Richards PA-C and agree with the assessment and plan. 68-year-old male status post laparoscopic cholecystectomy with postoperative fluid collection concerning for bile leak versus hematoma He is admitted to the medical service kept n.p.o. and started on IV antibiotics which is what I recommend GI has been consulted and possibly an ERCP tomorrow HIDA scan will be performed tomorrow to rule out a bile leak No plans for any operative intervention We will continue to follow History of Present Illness Attending Physician: Malcolm Mayes MD History of Present Illness This is a 68yM with a PMH of tobacco abuse, COPD, GERD, ADHD, depression and recent lap payton last week at [facility] who presents to the [facility] ED on 07/05/23 with complaints of abdominal pain. This was associated with some nausea/vomiting and bloating. A CT a/p was obtained that revealed a postoperative fluid collection within the maryan hepatis measuring up to 7.6 cm with a surgical drainage catheter coursing along the anterior aspect of the collection. Also with findings suggestive of associated mild acute pancreatitis. Patient reports feeling mildly better today and okay at rest. Hurts worse with movement. No fevers/chills Allergies Allergy/AdvReac Type Severity Reaction Status Date / Time coffee (Coffea arabica) AdvReac Dizziness Verified 07/05/23 23:31 Home Medications Medication Instructions Recorded Confirmed Type albuterol sulfate 90 mcg/actuation 1 inh inhalation DAILY PRN Wheezing 07/05/23 07/05/23 History aerosol inhaler (Proventil HFA) fluticasone furoate 200 1 inh inhalation QAM 07/05/23 07/05/23 History mcg-vilanterol 25 mcg/dose inhalation powder (Breo Ellipta) loratadine 10 mg tablet 10 mg PO QAM PRN Other 07/05/23 07/05/23 History methylphenidate HCl 20 mg tablet 20 mg PO TID 07/05/23 07/05/23 History naloxone 4 mg/actuation nasal spray See Rx Instructions .Route .COMPLEX 07/05/23 07/05/23 History naproxen 500 mg tablet 500 mg PO Q12H 07/05/23 07/05/23 History omeprazole 40 mg capsule,delayed 40 mg PO DAILY 07/05/23 07/05/23 History release oxycodone 5 mg tablet See Rx Instructions .Route .COMPLEX 07/05/23 07/05/23 History paroxetine HCl 10 mg tablet 10 mg PO DAILY 07/05/23 07/05/23 History simethicone 125 mg chewable tablet 125 mg PO QID PRN other 07/05/23 07/05/23 History Patient History Medical History ADHD Beta thalassemia trait COPD (chronic obstructive pulmonary disease) Depression GERD (gastroesophageal reflux disease) Osteoporosis Paget's disease of bone Tobacco abuse Surgical History History of hernia repair History of laparoscopic cholecystectomy Social History Smoking Status: Current every day smoker Tobacco Type: Cigarettes Cigarettes Per Day: 1 1/2 packs; Second Hand Exposure: No; Do You Dip or Chew Tobacco: No; Tobacco Cessation Education Requested by Patient: No Hx Alcohol Use: No Hx Substance Use: No Preferred Language: [place] Communication Ability: Effective 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: No Beliefs That Will Affect Care: None Current Living Situation: Spouse Other Information That Helps Us Care for You: No Feels Safe at Home: Yes Safety Concerns: Feels Safe At This Time Review of Systems Constitutional: no fever and no chills Respiratory: no dyspnea Gastrointestinal: + abdominal pain, + bloating, + nausea and + vomiting Physical Exam Physical Exam: awake Constitutional: no acute distress Respiratory: normal respiratory effort Gastrointestinal (Abdomen): Inspection/Auscultation: + abdominal surgical incision (+ ecchymosis of incisions) and + abdominal surgical drain present (serousang, non bilious ) Percussion/Palpation: + abdomen tender (ttp in RUQ) and abdomen soft Results & Data Vital Signs (Past 12 Hours) Vital Signs Temp Pulse Resp BP Pulse Ox O2 Del Method 07/06/23 07:40 36.7 C 65 16 119/69 94 Room Air 07/05/23 22:20 36.7 C 62 18 110/60 94 Room Air Diagnostic Findings ABDOMEN AND PELVIS CT WITH IV CONTRAST CT DOSE: 1042.06 mGy.cm HISTORY: Acute right upper quadrant abdominal pain h/o of payton and post op bleeding, NITIN in place TECHNIQUE: Multiaxial CT images of the abdomen and pelvis were performed following the IV administration of 92 cc of Optiray, A dose lowering technique was utilized adhering to the principles of ALARA. COMPARISON STUDY: None. FINDINGS: Mild subsegmental bibasilar atelectasis/scarring. A few scattered low suspicion solid pulmonary nodules measuring up to 3 mm. Trace right pleural effusion. Unremarkable spleen and adrenal glands. Mild interstitial peripancreatic edema of the pancreatic head, uncinate process and neck. Mild wall thickening of the distal stomach and duodenum. There are a few subcentimeter hypodensities noted within the liver which are too small to characterize and may represent cysts. Patent portal vein. Cholecystectomy clips within the maryan hepatis. Mild wall thickening and enhancement within the common bile duct. Postoperative fluid collection within the maryan hepatis measures 5.3 x 7.6 x 3.5 cm containing a few foci of air. Surgical drainage catheter courses along the anterior aspect of this collection with distal tip projected superiorly. Additional trace fluid tracks along the pancreatic or duodenal groove and into the right paracolic gutter. There are a few nonobstructing calculi in the left kidney measuring up to 3 mm. Bilateral renal cysts. No hydronephrosis. Prostatomegaly. Moderate bladder wall thickening with partial distention. Atherosclerosis of the aorta. Retroaortic left renal vein. No lymphadenopathy. Tiny hiatal hernia with mild distal esophageal wall thickening. Moderate fecal retention. Normal appendix. No acute fracture. Pagetoid changes of the right bony pelvis. IMPRESSION: 1. Postoperative changes compatible with recent laparoscopic cholecystectomy. There is a postoperative fluid collection within the maryan hepatis measuring up to 7.6 cm with a surgical drainage catheter coursing along the anterior aspect of the collection. Findings could be correlated with nuclear medicine hepatobiliary scan if there is clinical concern for a bile leak. 2. Findings suggestive of associated mild acute pancreatitis. 3. Borderline enlarged lymph nodes within the maryan hepatis are likely reactive. 4. No bowel obstruction. 5. Normal appendix. 6. Left nephrolithiasis. 7. Trace right pleural effusion. 8. Pagetoid osseous changes of the bony pelvis. ACT 112: Negative or not required by law. The above report was generated using voice recognition software. It may contain grammatical, syntax or spelling errors. Electronically signed by: Amauri Salter M.D. 07/05/2023 3:48 PM PG Care Time/CCT Total # of Minutes Spent Total Time Spent with Patient: Total time spent is greater than 50% in coordination of care (as documented) at patient's floor/unit and/or counseling patient: Coding Level of Care Code 28431 INT INP/OBS CARE 1/40MIN Diagnoses History of laparoscopic cholecystectomy Z90.49 Transaminitis R74.01
[2023-07-06] MEDS: PANTOprazole 40 MG in SYRINGE 0 ML IV SCH (11:41)
[2023-07-06] MEDS: NICOTINE 14 MG/24 HR PATCH TD SCH (12:45)
--- NOTE | 2023-07-06 13:22 | Hospitalist Progress Note ---
Date of Service July 06, 2023 Assessment & Plan (1) History of laparoscopic cholecystectomy: Plan: Laparoscopic cholecystectomy done on 07/02/2023 in [facility] Complicated by hepatic capsular tear and has had a J-tube placed in right upper quadrant Went to ER at [place] and later on came to ER at [facility] for better care CT did show fluid collection within the maryan hepatis measuring up to 7.6 cm with the surgical drain tip at the anterior aspect of the collection Appreciate surgery input and recommendation We will continue current antibiotic (2) Transaminitis: Plan: Likely secondary to maryan hepatis fluid collection with impaired drainage Associated with recent hepatic capsular tear during laparoscopic procedure on 07/02/2023 Appreciate GI input and recommendation for ERCP and HIDA scan (3) Pancreatitis: Plan: Patient presenting from home with reports of abdominal pain. S/p laparoscopic cholecystectomy on 07/[address] Aguilera at [facility]. In the ED, patient found to have transaminitis and elevated lipase. CT ABD/pelvis showing postoperative changes compatible with recent laparoscopic cholecystectomy. There is a postoperative fluid collection within the maryan hepatis measuring up to 7.6 cm with a surgical drainage catheter coursing along the anterior aspect of the collection. Findings could be correlated with nuclear medicine hepatobiliary scan if there is clinical concern for a bile leak. Findings suggestive of associated mild acute pancreatitis. N.p.o., IVF, pain and nausea control Lipase was highly elevated and the level has been improving on conservative management Has been getting intravenous Zosyn (4) COPD (chronic obstructive pulmonary disease): Plan: No acute symptoms (5) Tobacco abuse: Plan: No signs of acute exacerbation Tobacco cessation advised, nicotine patch provided (6) GERD (gastroesophageal reflux disease): Plan: IV PPI (7) ADHD: (8) Depression: Plan: Stable, continue methylphenidate and paroxetine DVT PROPHYLAXIS SCDs in the event patient needs invasive procedure Admission and Anticipated Discharge Date Admission Date: July 05, 2023 Subjective 07/06/2023 The patient was seen and examined in medical floor He complains to abdominal pain right quadrants which is worse with food He remains miserable as he describes Does not have any abdominal distention, nausea and or vomiting Has had fever with chills as an outpatient Review of Systems Review of Systems: All systems reviewed and are unremarkable except as noted below Gastrointestinal: Abdominal bloating with pain, worse with any food Physical Exam Physical Exam: Lying in bed in distress Constitutional: + ill appearing and average body habitus Eyes: PERRL, conjunctivae normal, anicteric sclerae ENMT: external ear and nose normal, oropharynx normal Neck: trachea midline, no thyromegaly Respiratory: no respiratory distress Auscultation: lungs clear to auscultation bilaterally Cardiovascular: Rate/Rhythm: regular rate and regular rhythm; not tachycardic Heart Sounds: normal S1 and normal S2; no murmur Extremities: no edema Gastrointestinal (Abdomen): Inspection/Auscultation: + abdomen distended; + abnormal bowel sounds (Decreased) Percussion/Palpation: + abdomen tender (All over mostly of right quadrants which is positive as well) and abdomen soft Extensive bruising involving the anterior abdominal wall Musculoskeletal: No acute arthritis involving any joint Neurologic: Alert, awake and oriented x3. No focal sensory or motor deficit appreciated Psychiatric: A+Ox3, euthymic affect Lymphatic: no cervical or axillary lymphadenopathy Results & Data Results & Data Vital Signs (Past 12 Hours) Vital Signs Temp Pulse Resp BP Pulse Ox O2 Del Method 07/06/23 07:40 36.7 C 65 16 119/69 94 Room Air Laboratory Results Short CBC 07/05/23 07/06/23 Range/Units 14:17 05:39 WBC 10.57 9.94 (4.8-10.8) K/ul Hgb 11.4 L 10.6 L (14.0-18.0) g/dl Hct 35.1 L 31.3 L (42.0-52.0) % Plt Count 224 212 (130-400) K/uL BMP 07/05/23 07/06/23 14:17 05:39 Sodium 139 140 Potassium 3.3 L 3.7 Chloride 104 109 H Carbon Dioxide 28 24 BUN 12 10 Creatinine 0.81 0.73 Glucose 91 71 Calcium 8.6 8.5 L Liver Function 07/05/23 07/06/23 Range/Units 14:17 05:39 Total Bilirubin 2.5 H 3.8 H D (0.2-1.0) mg/dl AST 496 H 201 H (13-39) U/L ALT 297 H 233 H (7-52) U/L Alkaline Phosphatase 211 H 168 H (34-104) U/L Albumin 3.7 3.3 L (3.4-5.0) gm/dl Urine 07/05/23 Range/Units 14:25 Urine Color Yellow Urine Appearance Clear (Clear) Urine pH 8.5 H (4.5-7.5) Ur Specific [place] 1.009 (1.000-1.030) Urine Protein Negative (Negative) Urine Glucose (UA) Negative (Negative) Medications Administered Current Inpatient Medications Acetaminophen (Acetaminophen 325 Mg Tab) 650 mg PO Q4H PRN PRN Reason: pain/fever Stop: 08/04/23 19:02 Fluticasone/Vilanterol (Fluticasone/Vilanterol 200/25mcg 14 Puffs/Inhaler) 1 puffs INH QAM [facility] Stop: 08/05/23 08:59 Last Admin: 07/06/23 08:51 Dose: 1 puffs Lactated Ringer's (Lr) 1,000 mls @ 150 mls/hr IV .Q6H40M [facility] Stop: 08/04/23 19:02 Last Admin: 07/06/23 08:51 Dose: 150 mls/hr Piperacillin Sod/Tazobactam (Sod 4.5 gm/ Dextrose) 120 mls @ 30 mls/hr IV Q8H [facility]; Protocol Stop: 07/16/23 00:00 Last Infusion: 07/06/23 11:59 Dose: Infused Pantoprazole Sodium 40 mg/ (Syringe) 10 mls @ 5 mls/min IV DAILY@1100 [facility] Stop: 08/05/23 10:59 Last Admin: 07/06/23 11:41 Dose: 5 mls/min Methylphenidate HCl (Methylphenidate Hcl 10 Mg Tablet) 20 mg PO TID@0700,1100,1500 [facility] Stop: 07/19/23 20:59 Last Admin: 07/06/23 11:41 Dose: 20 mg Miscellaneous (Remove Nicoderm Patch) 1 each N/A DAILY@0859 [facility] Stop: 08/06/23 08:58 Morphine Sulfate (Morphine Sulfate 4 Mg/Ml 1 Ml Carp\Vial) 4 mg IV Q6H PRN PRN Reason: severe Pain Stop: 07/19/23 19:02 Nicotine (Nicotine 14 Mg/24 Hr Patch) 14 mg TD QAM [facility] Stop: 08/05/23 10:29 Last Admin: 07/06/23 12:45 Dose: 14 mg Ondansetron HCl (Ondansetron Inj 2 Mg/Ml 2 Ml Vial) 4 mg IV Q6H PRN PRN Reason: Nausea Stop: 08/04/23 19:02 Oxycodone HCl (Oxycodone Hcl Ir 5 Mg Tab (Immediate Release)) 5 mg PO Q6H PRN PRN Reason: Moderate Pain (Scale 4, 5, 6) Stop: 07/19/23 19:02 Paroxetine HCl (Paroxetine Hcl 10 Mg Tab) 10 mg PO DAILY ÁNGEL Stop: 08/05/23 08:59 Last Admin: 07/06/23 08:52 Dose: 10 mg (3) Pancreatitis Acute pancreatitis complication: unspecified Chronicity: acute Pancreatitis type: unspecified pancreatitis type Qualified Code(s): K85.90 - Acute pancreatitis without necrosis or infection, unspecified
[2023-07-07] MEDS: PIPERACILLIN/TAZOBACTAM 4.5 GM in DEXTROSE 5% 100 ML IV SCH ×4 (00:12→23:51)
[2023-07-07] MEDS: LACTATED RINGER'S 1,000 ML IV SCH ×4 (04:37→23:51)
[2023-07-07 06:28] LABS: Basophils # (auto) 0.04 K/uL (0-0.2); Basophils % (auto) 0.4 %; Eosinophils # (auto) 0.28 K/uL (0-0.50); Eosinophils % (auto) 2.5 %; Hematocrit (blood only) 30.8 % (42.0-52.0); Hemoglobin 10.6 g/dl (14.0-18.0); Immature Granulocytes # (auto) 0.16 K/uL (0.01-0.20); Immature Granulocytes % (auto) 1.5 %; Lymphocytes # (auto) 2.29 K/uL (1.2-3.4); Lymphocytes % (auto) 20.8 %; Mean Corpuscular Hemoglobin 23.3 pg (25.0-34.0); Mean Corpuscular Hgb Conc 34.4 g/dL (32.0-36.0); Mean Corpuscular Volume 67.8 fL (80.0-100.0); Monocytes # (auto) 0.99 K/uL (0.11-0.59); Neutrophils # (auto) 7.25 K/uL (1.40-6.50); Neutrophils % (auto) 65.8 %; RDW Coefficient of Variation 15.8 % (11.5-14.5); RDW Standard Deviation 37.8 fL (36.4-46.3); Red Blood Count 4.54 M/uL (4.70-6.10); White Blood Count 11.01 K/ul (4.8-10.8)
[2023-07-07 06:39] LABS: Mean Platelet Volume 11.2 fL (9.4-12.4); Platelet Count 254 K/uL (130-400)
[2023-07-07] MEDS: METHYLPHENIDATE HCL 10 MG TABLET PO SCH ×3 (06:52→18:09)
[2023-07-07 06:53] LABS: Hypochromasia Present; Microcytosis Present; Polychromasia 1+
[2023-07-07 07:01] LABS: Albumin Globulin Ratio 1.1 (0.9-2); Albumin Level 3.1 gm/dl (3.4-5.0); BUN Creatinine Ratio 13.5 (10-20); Bilirubin,Total 1.5 mg/dl (0.2-1.0); Creatinine Clr Calc Pharmacy 86.8 ml/min; Est GFR (African American) 108.3 ml/min; Est GFR (Non-African American) 93.5 ml/min; Globulin 2.9 gm/dl (2.5-4.0); Magnesium 1.8 mg/dl (1.7-2.4); Phosphorus 2.4 mg/dl (2.5-4.9); Potassium 3.3 mmol/L (3.5-5.1)
[2023-07-07] MEDS: NICOTINE 14 MG/24 HR PATCH TD SCH (07:50)
[2023-07-07] MEDS: FLUTICASONE/VILANTEROL 200/25MCG 14 PUFFS/INHALER INH SCH (07:51)
[2023-07-07] MEDS: PARoxetine HCL 10 MG TAB PO SCH (07:52)
[2023-07-07] MEDS ORDERED: INDOMETHACIN 50 MG SUPP PR ONE (08:39)
--- NOTE | 2023-07-07 08:51 | Surgery Progress Note ---
Date of Service July 07, 2023 Assessment & Plan (1) History of laparoscopic cholecystectomy: Plan: He is doing better and his LFTs are trending down He scheduled for a HIDA scan today and a tentative ERCP The HIDA scan is negative, we can likely advance his diet and send him home with his drain in place The HIDA scan is positive, we will likely proceed with ERCP per GI We will follow up the results of the HIDA scan (2) Pancreatitis: Admission and Anticipated Discharge Date Admission Date: July 05, 2023 Subjective Patient seen and examined. Minimal abdominal pain. No nausea or vomiting. He had a bowel movement. Review of Systems Constitutional: no fever and no chills Physical Exam Constitutional: WD/WN, vitals as above Gastrointestinal (Abdomen): Soft, minimally tender to palpation Drain right upper quadrant with serosanguineous output Results & Data Vital Signs (Past 12 Hours) Vital Signs Temp Pulse Resp BP Pulse Ox O2 Del Method 07/07/23 08:00 36.7 C 70 15 136/73 95 Room Air 07/06/23 23:17 36.8 C 73 18 117/62 98 Room Air PG Care Time/CCT Total # of Minutes Spent Total Time Spent with Patient: Total time spent is greater than 50% in coordination of care (as documented) at patient's floor/unit and/or counseling patient: Coding Level of Care Code 74665 SUB INP/OBS CARE 12/11MIN Diagnoses History of laparoscopic cholecystectomy Z90.49 Pancreatitis K85.90 Acute pancreatitis complication: unspecified Chronicity: acute Pancreatitis type: unspecified pancreatitis type (2) Pancreatitis Acute pancreatitis complication: unspecified Chronicity: acute Pancreatitis type: unspecified pancreatitis type Qualified Code(s): K85.90 - Acute pancreatitis without necrosis or infection, unspecified
[2023-07-07] MEDS: POTASSIUM CHLORIDE / WTR 10 MEQ/100 ML PLCT IV SCH ×2 (09:18→13:13)
--- NOTE | 2023-07-07 09:48 | Gastroenterology Progress Note ---
Date of Service July 07, 2023 Assessment & Plan (1) History of laparoscopic cholecystectomy: Plan Pt is a 68 yo male who is s/p lap payton on 07/02/2023, complicated by capsular tear, admitted w abd pain, elevated LFTs and lipase. CT abd/pelvis w 7.6cm fluid collection within maryan hepatis, ? possible bile leak. - IVF support w LR - Zosyn IV - NPO - ERCP w Dr. Isael Pagan in OR today - Trend LFTs - Symptomatic management otherwise Admission and Anticipated Discharge Date Admission Date: July 05, 2023 Supervising Physician Co-Signing Physician Notes I saw and evaluated the patient. He presents status post recent cholecystectomy with possible seroma or biloma in the right upper quadrant. Of note his HIDA scan was negative for evidence of a bile leak. The patient did have a pretty significant elevation of his liver associated enzymes which are improved as of today. Given this I think it may be reasonable to proceed with endoscopic ultrasound and likely ERCP pending results of the EUS. We discussed risks and benefits to include bleeding infection perforation pain pancreatitis failed biliary cannulation and need for follow-up studies. Subjective Pt w RUQ abd pain, no n/v, fever or chills. Is passing flatus. Review of Systems Review of Systems: All systems reviewed & are unremarkable except as noted in HPI & below Physical Exam Constitutional: WD/WN, vitals as above well groomed, cooperative and comfortable Eyes: PERRL, conjunctivae normal, anicteric sclerae ENMT: external ear and nose normal, oropharynx normal Respiratory: normal respiratory effort, lungs clear to auscultation Cardiovascular: RRR, no murmur, no edema Gastrointestinal (Abdomen): Soft, TTP RUQ, + BS. NITIN drain to RUQ w serous drainage Skin: no rashes, warm and dry no jaundice Psychiatric: A+Ox3, euthymic affect Lymphatic: no lymphedema Results & Data Vital Signs (Past 12 Hours) Vital Signs Temp Pulse Resp BP Pulse Ox O2 Del Method 07/07/23 08:00 36.7 C 70 15 136/73 95 Room Air 07/06/23 23:17 36.8 C 73 18 117/62 98 Room Air
--- NOTE | 2023-07-07 11:03 | Anesthesiology Consultation ---
Date of Service July 07, 2023 Assessment & Plan (1) Encounter for pre-operative examination: Chart Review Chart Review: Acceptable Risk for Surgery and Patient NOT seen in Pre Admission Testing Consults Requested none History Surgery Operation Date: 07/07/23 07:50 Proposed Procedures p Endoscopic Retrograde Cholangiopancreato - Isael Pagan DO s Endoscopic Ultrasonography Upper - Isael Pagan DO Height/Weight Height: 5 ft 7 in Weight: 78.2 kg Allergies Allergy/AdvReac Type Severity Reaction Status Date / Time coffee (Coffea arabica) AdvReac Dizziness Verified 07/05/23 23:31 Medications Home Medications Medication Instructions Recorded Confirmed Last Taken albuterol sulfate 90 mcg/actuation 1 inh inhalation DAILY PRN Wheezing 07/05/23 07/05/23 Unknown aerosol inhaler (Proventil HFA) fluticasone furoate 200 1 inh inhalation QAM 07/05/23 07/05/23 Unknown mcg-vilanterol 25 mcg/dose inhalation powder (Breo Ellipta) loratadine 10 mg tablet 10 mg PO QAM PRN Other 07/05/23 07/05/23 Unknown methylphenidate HCl 20 mg tablet 20 mg PO TID 07/05/23 07/05/23 Unknown naloxone 4 mg/actuation nasal spray See Rx Instructions .Route .COMPLEX 07/05/23 07/05/23 Unknown naproxen 500 mg tablet 500 mg PO Q12H 07/05/23 07/05/23 Unknown omeprazole 40 mg capsule,delayed 40 mg PO DAILY 07/05/23 07/05/23 Unknown release oxycodone 5 mg tablet See Rx Instructions .Route .COMPLEX 07/05/23 07/05/23 Unk nown paroxetine HCl 10 mg tablet 10 mg PO DAILY 07/05/23 07/05/23 Unknown simethicone 125 mg chewable tablet 125 mg PO QID PRN other 07/05/23 07/05/23 Unknown Active Medications Generic Name Dose Route Start Last Admin Trade Name Freq PRN Reason Stop Dose Admin Fluticasone/Vilanterol 1 puffs 07/06/23 09:00 07/07/23 07:51 Fluticasone/Vilanterol 200/25mcg 14 Puffs/Inhaler INH 08/05/23 08:59 1 puffs QAM ÁNGEL Administration Lactated Ringer's 1,000 mls @ 150 mls/hr 07/05/23 19:03 07/07/23 04:37 Lr IV 08/04/23 19:02 150 mls/hr .Q6H40M ÁNGEL Administration Piperacillin Sod/Tazobactam 120 mls @ 30 mls/hr 07/06/23 00:00 07/07/23 13:04 Sod 4.5 gm/ Dextrose IV 07/16/23 00:00 Infused Q8H ÁNGEL Infusion Protocol Pantoprazole Sodium 40 mg/ 10 mls @ 5 mls/min 07/06/23 11:00 07/07/23 13:05 Syringe IV 08/05/23 10:59 5 mls/min DAILY@1100 ÁNGEL Administration Methylphenidate HCl 20 mg 07/06/23 07:00 07/07/23 13:09 Methylphenidate Hcl 10 Mg Tablet PO 07/19/23 20:59 20 mg TID@0700,1100,1500 ÁNGEL Administration Miscellaneous 1 each 07/07/23 08:59 07/07/23 07:49 Remove Nicoderm Patch N/A 08/06/23 08:58 1 each DAILY@0859 ÁNGEL Administration Nicotine 14 mg 07/06/23 10:30 07/07/23 07:50 Nicotine 14 Mg/24 Hr Patch TD 08/05/23 10:29 14 mg QAM ÁNGEL Administration Paroxetine HCl 10 mg 07/06/23 09:00 07/07/23 07:52 Paroxetine Hcl 10 Mg Tab PO 08/05/23 08:59 10 mg DAILY ÁNGEL Administration Past Medical History Medical History ADHD Beta thalassemia trait COPD (chronic obstructive pulmonary disease) Depression GERD (gastroesophageal reflux disease) Osteoporosis Paget's disease of bone Tobacco abuse Past Surgical History Surgical History History of hernia repair History of laparoscopic cholecystectomy Social History Smoking Status: Current every day smoker Smoking cigarettes per day: 1 1/2 packs Do You Dip or Chew Tobacco: No Hx Alcohol Use: No Hx Substance Use: No substance use type: does not use Physical Exam Vital Signs Last Vital Signs Temp 36.6 C 07/07/23 14:25 Pulse 73 07/07/23 14:25 Resp 18 07/07/23 14:25 BP 135/81 07/07/23 14:25 Pulse Ox 95 07/07/23 14:25 O2 Del Method Room Air 07/07/23 14:25 Testing Laboratory Results 07/07/23 05:37 07/07/23 05:37 Urine Color Yellow 07/05/23 14:25 Urine Appearance Clear (Clear) 07/05/23 14:25 Urine pH 8.5 (4.5-7.5) H 07/05/23 14:25 Ur Specific [place] 1.009 (1.000-1.030) 07/05/23 14:25 Urine Protein Negative (Negative) 07/05/23 14:25 Urine Glucose (UA) Negative (Negative) 07/05/23 14:25 Urine Ketones Negative (Negative) 07/05/23 14:25 Urine Nitrite Negative (Negative) 07/05/23 14:25 Ur Leukocyte Esterase Negative (Negative) 07/05/23 14:25 Electrocardiogram Date: 07/07/23 Findings: + NSR @ DICTATED BY:Mateo De Leon MD Test Reason : Blood Pressure : / mmHG Vent. Rate : 084 BPM Atrial Rate : 084 BPM P-R Int : 144 ms QRS Dur : 142 ms QT Int : 426 ms P-R-T Axes : 076 -30 108 degrees QTc Int : 503 ms Poor data quality, interpretation may be adversely affected Normal sinus rhythm Left axis deviation Left bundle branch block Abnormal ECG When compared with ECG of 11-DEC-2018 11:40, Left bundle branch block has replaced Incomplete left bundle block Confirmed by Mateo De Leon ([id number]) on 07/07/2023 12:42:55 PM
--- NOTE | 2023-07-07 12:14 | Nuclear Medicine Report ---
NM hepatobiliary CLINICAL HISTORY: s/p lap payton, poss bile leak TECHNIQUE: Following the intravenous injection of 4.9 mCi of Tc-99m labeled Technetium 99m mebrofeni n, multiple images of the upper abdomen were obtained in the anterior projection with uptake measurem ents of the gallbladder obtained. Comparison: Comparison is made to CT abdomen pelvis 07/05/2023 FINDINGS: Patient is status post cholecystomy. No biliary leak is seen. IMPRESSION: No biliary leak is seen. Reference: Normal gallbladder ejection fraction is greater than 33%. ACT 112: Negative or not required by law. Electronically signed by: Bill Orozco M.D. 07/07/2023 12:13 PM
[2023-07-07] MEDS: PANTOprazole 40 MG in SYRINGE 0 ML IV SCH (13:05)
[2023-07-07] MEDS ORDERED: ONDANSETRON INJ 2 MG/ML 2 ML VIAL IV PRN (14:37)
[2023-07-07] MEDS ORDERED: ATROPINE SULFATE 0.1 MG/ML 10ML SYR IV PRN (14:37)
[2023-07-07] MEDS ORDERED: ePHEDrine sulfate 50 MG/ML AMP IV PRN (14:37)
[2023-07-07] MEDS ORDERED: fentaNYL citrate PF 100 MCG/2 ML VIAL IV PRN (14:37)
[2023-07-07] MEDS ORDERED: SUCCINYLCHOLINE CHLORIDE 20 MG/ML 10 ML VIAL IV ONE ×2 (14:39→15:56)
[2023-07-07] MEDS ORDERED: PROPOFOL IV EMULSION 10 MG/ML 20 ML VIAL IV ONE (14:39)
[2023-07-07] MEDS ORDERED: LIDOCAINE 2% 2 ML VIAL/AMP(20MG/ML) INFIL ONE (14:39)
[2023-07-07] MEDS ORDERED: fentaNYL citrate PF 100 MCG/2 ML VIAL ONE (14:39)
--- NOTE | 2023-07-07 16:02 | GI REPORT ---
Patient Name: Andrea Beckett Procedure Date: 07/07/2023 2:43 PM Date of : 1955 Admit Type: Inpatient Age: 68 Gender: Male Attending MD: Isael Pagan DO, Procedure: Upper EUS Providers: Isael Pagan DO Referring MD: Malcolm Mayes Indications: Elevated liver enzymes, Suspected choledocholithiasis, Epigastric abdominal pain Medicines: General Anesthesia Complications: No immediate complications. Estimated blood loss: Minimal. Estimated Blood Loss: Estimated blood loss: Minimal. Procedure: Pre-Anesthesia Assessment: - Prior to the procedure, a History and Physical was performed, and patient medications, allergies and sensitivities were reviewed. The patient's tolerance of previous anesthesia was reviewed. - The risks and benefits of the procedure and the sedation options and risks were discussed with the patient. All questions were answered and informed consent was obtained. - Patient identification and proposed procedure were verified prior to the procedure by the physician, the nurse and the insurance claims clerk. The procedure was verified in the procedure room. - Pre-procedure physical examination revealed no contraindications to sedation. - ASA Grade Assessment: III - A patient with severe systemic disease. - After reviewing the risks and benefits, the patient was deemed in satisfactory condition to undergo the procedure. - The anesthesia plan was to use general anesthesia. - Immediately prior to administration of medications, the patient was re-assessed for adequacy to receive sedatives. - The heart rate, respiratory rate, oxygen saturations, blood pressure, adequacy of pulmonary ventilation, and response to care were monitored throughout the procedure. - The physical status of the patient was re-assessed after the procedure. After obtaining informed consent, the endoscope was passed under direct vision. Throughout the procedure, the patient's blood pressure, pulse, and oxygen saturations were monitored continuously.The upper EUS was accomplished without difficulty. The patient tolerated the procedure well. The Endosonoscope was introduced through the mouth, and advanced to the third part of duodenum. Findings: ENDOSONOGRAPHIC FINDING: : There was no sign of significant endosonographic abnormality in the ampulla. No masses were identified. Evidence of a previous cholecystectomy was identified endosonographically. A large amount of fluid, visualized as an oval hypoechoic structure up to 6 cm in greatest dimension was seen in the region of the gallbladder fossa. There was dilation in the common bile duct which measured up to 8 mm. One stone was visualized endosonographically in the common bile duct. The stone measured 6 mm in greatest dimension. It was hyperechoic. There was no sign of significant endosonographic abnormality in the visualized portion of the liver. Homogeneous parenchyma and no focal pathology were identified. Pancreatic parenchymal abnormalities were noted in the entire pancreas. These consisted of lobularity without honeycombing. The pancreatic duct was 4 mm in the head but otherwise unremarkable, the pancreatic duct was 2 mm in the body. No lymphadenopathy seen. Impression: - There was no sign of significant pathology in the ampulla. - Evidence of a cholecystectomy. -6 cm fluid collection in the region of the gallbladder fossa. - There was dilation in the common bile duct which measured up to 8 mm. - One stone was visualized endosonographically in the common bile duct. - There was no evidence of significant pathology in the visualized portion of the liver. - Pancreatic parenchymal abnormalities consisting of lobularity were noted in the entire pancreas. - No specimens collected. Recommendation: - Perform an ERCP today. Isael Pagan D.O. Isael Pagan, 07/07/2023 4:02:20 PM This report has been signed electronically. Note Initiated On: 07/07/2023 2:43 PM Number of Addenda: 0 I attest to the content of the Intraoperative Record and orders documented therein, exceptions below {[id number]}
--- NOTE | 2023-07-07 16:09 | GI REPORT ---
Patient Name: Andrea Beckett Procedure Date: 07/07/2023 2:45 PM Date of : 1955 Admit Type: Inpatient Age: 68 Gender: Male Attending MD: Isael Pagan DO, Procedure: ERCP Providers: Isael Pagan DO Referring MD: Malcolm Mayes Indications: Abdominal pain of suspected biliary origin, For therapy of bile duct stone(s) Medicines: General Anesthesia Complications: No immediate complications. Estimated blood loss: Minimal. Estimated Blood Loss: Estimated blood loss was minimal. Procedure: Pre-Anesthesia Assessment: - Prior to the procedure, a History and Physical was performed, and patient medications, allergies and sensitivities were reviewed. The patient's tolerance of previous anesthesia was reviewed. - The risks and benefits of the procedure and the sedation options and risks were discussed with the patient. All questions were answered and informed consent was obtained. - Patient identification and proposed procedure were verified prior to the procedure by the physician, the nurse and the multicut line operator. The procedure was verified in the procedure room. - Pre-procedure physical examination revealed no contraindications to sedation. - ASA Grade Assessment: III - A patient with severe systemic disease. - After reviewing the risks and benefits, the patient was deemed in satisfactory condition to undergo the procedure. - The anesthesia plan was to use general anesthesia. - Immediately prior to administration of medications, the patient was re-assessed for adequacy to receive sedatives. - The heart rate, respiratory rate, oxygen saturations, blood pressure, adequacy of pulmonary ventilation, and response to care were monitored throughout the procedure. - The physical status of the patient was re-assessed after the procedure. After obtaining informed consent, the scope was passed under direct vision. Throughout the procedure, the patient's blood pressure, pulse, and oxygen saturations were monitored continuously. The patient tolerated the procedure well. The Duodenoscope was introduced through the mouth, and advanced to the duodenum and used to inject contrast into the bile duct and ventral pancreatic duct. The ERCP was somewhat difficult. Successful completion of the procedure was aided by performing the maneuvers documented (below) in this report. Findings: A base filler operator film of the abdomen was obtained. Surgical clips and a percutaneous drain, consistent with a previous cholecystectomy, were seen in the area of the right upper quadrant of the abdomen. The esophagus was successfully intubated under direct vision without detailed examination of the pharynx, larynx, and associated structures, and upper GI tract. The upper GI tract was grossly normal. The major papilla was normal. The ventral pancreatic duct was inadvertently cannulated with the short-nosed traction sphincterotome and guidewire without any complications. The guidewire was left in place to aid in biliary cannulation with a double wire technique and later place a prophylactic pancreatic stent. The bile duct could not be cannulated with the short-nosed traction sphincterotome and guidewire. Therefore a ventral pancreatic septotomy was made with a monofilament CleverCut distal wire sphincterotome using ERBE electrocautery. There was no post-sphincterotomy bleeding. The bile duct was deeply cannulated with the short-nosed traction sphincterotome and 0.025 in Visiglide guidewire. Contrast was injected. I personally interpreted the bile duct images. Contrast extended to the entire biliary tree. A cholecystectomy had been performed. The lower third of the main bile duct contained filling defect(s) thought to be a stone. The biliary orifice was stenotic. This appeared benign. No obvious extravasation of contrast could be seen into the region of the gallbladder fossa. The biliary sphincterotomy was extended with a monofilament CleverCut distal wire sphincterotome using ERBE electrocautery. There was no post-sphincterotomy bleeding. One 5 Fr by 7 cm pancreatic stent with a full external pigtail and no internal flaps was placed 7 cm into the ventral pancreatic duct. Clear fluid flowed through the stent. The stent was in good position. To discover objects, the biliary tree was swept with an 11.5 and a 15 mm balloon starting at the bifurcation. Two stones were removed. No stones remained. One 10 Fr by 8 cm biliary stent with a single external flap and a single internal flap was placed 8 cm into the common bile duct. Bile flowed through the stent. The stent was in good position. The endoscope was withdrawn from the patient. Impression: - Choledocholithiasis was found. Complete removal was accomplished by biliary sphincterotomy and balloon extraction. - One pancreatic stent was placed into the ventral pancreatic duct. - One biliary stent was placed into the common bile duct. Recommendation: - Return patient to [facility] for [facility] care. - Clear liquid diet today. - Repeat ERCP in 6 weeks to remove stent. - Use broad spectrum antibiotics for 10 days. Isael Pagan D.O. Isael Pagan, 07/07/2023 4:09:27 PM This report has been signed electronically. Note Initiated On: 07/07/2023 2:45 PM Number of Addenda: 0 I attest to the content of the Intraoperative Record and orders documented therein, exceptions below {[id number]}
--- NOTE | 2023-07-07 16:10 | Post Operative Brief Note ---
Immediate Post Op Note v1 Date of Surgery July 07, 2023 Pre & Post Diagnosis Operation Date: 07/07/23 07:50 Pre-Op Diagnosis: S/P LAP BLANCA, POSS BILE LEAK, PANCREATITIS Post-Op Diagnosis: CBD stones / papillary stenosis I identified the patient and participated in the time-out.: Yes Procedure Operation Date: 07/07/23 07:50 Actual Procedures p Endoscopic Ultrasonography Upper - Isael Pagan DO p Endoscopic Retrograde Cholangiopancreato - Isael Pagan DO Surgeon Isael Pagan, Java Xml Developer none Estimated Blood Loss 0 Findings Consistent with Post-Op Diagnosis
--- NOTE | 2023-07-07 16:11 | Communication Note ---
Date of Service: July 07, 2023 Patient underwent EUS and ERCP this afternoon. He was found to have a 6 cm fluid collection in the region of his gallbladder fossa. The patient was also found to have evidence of a stone in his distal common bile duct. This was removed with an ERCP and biliary sphincterotomy. A prophylactic pancreatic stent was placed in addition to a biliary stent. Recommendations Antibiotic coverage for total of 10 days Clear liquid diet tonight repeat ERCP in 6 to 8 weeks for stent removal Hold NSAIDs for 1 week please.
--- NOTE | 2023-07-07 16:38 | Anesthesiology Progress Note ---
Date of Service July 07, 2023 Anesthesia Post Procedure Vital Signs Vital Signs: Temp Pulse Pulse Resp BP BP Pulse Ox 07/07/23 16:25 36.7 C 77 17 135/74 94 07/07/23 16:15 71 13 136/61 99 07/07/23 16:05 71 14 134/59 L 99 07/07/23 15:59 36.1 C L 75 17 137/68 98 07/07/23 14:25 36.6 C 73 18 135/81 95 07/07/23 08:00 36.7 C 70 15 136/73 95 07/06/23 23:17 36.8 C 73 18 117/62 98 07/06/23 19:40 O2 Del Method O2 Flow Rate 07/07/23 16:25 Room Air 07/07/23 16:15 Oxymask 5 07/07/23 16:05 Oxymask 9 07/07/23 15:59 Oxymask 9 07/07/23 14:25 Room Air 07/07/23 08:00 Room Air 07/06/23 23:17 Room Air 07/06/23 19:40 Room Air Pain Intensity Abdomen: Pain Intensity: 3 Transfer of Care Handoff Completed per policy Notes Mental Status: alert / awake / arousable and participated in evaluation Patient Amnestic to Procedure: Yes Nausea / Vomiting: adequately controlled Pain: adequately controlled Airway Patency, RR, SpO2: stable & adequate BP & HR: stable & adequate Hydration State: stable & adequate Anesthetic Complications: no major complications apparent and Pt Satisfied with anesthetic care
--- NOTE | 2023-07-07 17:01 | Fluoroscopy Report ---
[place] ERCP biliary ductal CLINICAL HISTORY: ERCP COMPARISON STUDY: CT 07/05/2023 FLUOROSCOPY TIME: 44.2 seconds FLUOROSCOPY IMAGES: 6 EXPOSURE DOSE: 8.68 mGy FINDINGS: Endoscope noted within the duodenum. Cannulation of the pancreatic and common bile ducts. C holecystectomy. Subsequent images demonstrate balloon sweep of the common bile duct. No biliary stric turing, significant biliary ductal dilation or filling defects. No contrast extravasation. IMPRESSION: Fluoroscopic assistance as above. ACT 112: Negative or not required by law. Electronically signed by: Amauri Salter M.D. 07/07/2023 5:00 PM
--- NOTE | 2023-07-07 17:59 | Hospitalist Progress Note ---
Date of Service July 07, 2023 Assessment & Plan (1) History of laparoscopic cholecystectomy: Plan: Laparoscopic cholecystectomy done on 07/02/2023 in [facility] Complicated by hepatic capsular tear and has had a J-tube placed in right upper quadrant Went to ER at [place] and later on came to ER at [facility] for better care CT did show fluid collection within the maryan hepatis measuring up to 7.6 cm with the surgical drain tip at the anterior aspect of the collection Appreciate surgery input and recommendation We will continue current antibiotic Status post ERCP Noted to have choledocho lithiasis and the stones were removed Status postplacement of biliary and pancreatic stent No bile leak is noted Will need ERCP and stent extraction in about 6 weeks EUS - There was no sign of significant pathology in the ampulla. - Evidence of a cholecystectomy. -6 cm fluid collection in the region of the gallbladder fossa. - There was dilation in the common bile duct which measured up to 8 mm. - One stone was visualized endosonographically in the common bile duct. - There was no evidence of significant pathology in the visualized portion of the liver. - Pancreatic parenchymal abnormalities consisting of lobularity were noted in the entire pancreas. - No specimens collected. (2) Transaminitis: Plan: Likely secondary to maryan hepatis fluid collection with impaired drainage Associated with recent hepatic capsular tear during laparoscopic procedure on 07/02/2023 Appreciate GI input and recommendation for ERCP and HIDA scan LFTs are improving (3) Pancreatitis: Plan: Patient presenting from home with reports of abdominal pain. S/p laparoscopic cholecystectomy on 07/[address] Aguilera at [facility]. In the ED, patient found to have transaminitis and elevated lipase. CT ABD/pelvis showing postoperative changes compatible with recent laparoscopic cholecystectomy. There is a postoperative fluid collection within the maryan hepatis measuring up to 7.6 cm with a surgical drainage catheter coursing along the anterior aspect of the collection. Findings could be correlated with nuclear medicine hepatobiliary scan if there is clinical concern for a bile leak. Findings suggestive of associated mild acute pancreatitis. N.p.o., IVF, pain and nausea control Lipase was highly elevated and the level has been improving on conservative management Has been getting intravenous Zosyn Antibiotics will be continued for a total of 10 days (4) COPD (chronic obstructive pulmonary disease): Plan: No acute symptoms No wheezing and/or shortness of breath at rest (5) Tobacco abuse: Plan: No signs of acute exacerbation Tobacco cessation advised, nicotine patch provided (6) GERD (gastroesophageal reflux disease): Plan: IV PPI (7) ADHD: (8) Depression: Plan: Stable, continue methylphenidate and paroxetine DVT PROPHYLAXIS SCDs in the event patient needs invasive procedure Admission and Anticipated Discharge Date Admission Date: July 05, 2023 Subjective 07/06/2023 The patient was seen and examined in medical floor He complains to abdominal pain right quadrants which is worse with food He remains miserable as he describes Does not have any abdominal distention, nausea and or vomiting Has had fever with chills as an outpatient 07/07/2023 The patient was seen and examined in medical floor He is status post ERCP and extraction of common bile duct stone and stent placement in bile duct and pancreatic duct No bile leak identified Remains stable following procedure but sleepy Review of Systems Review of Systems: All systems reviewed and are unremarkable except as noted below Gastrointestinal: Abdominal bloating with pain, worse with any food Physical Exam Physical Exam: Lying in bed in distress Constitutional: + ill appearing and average body habitus Eyes: PERRL, conjunctivae normal, anicteric sclerae ENMT: external ear and nose normal, oropharynx normal Neck: trachea midline, no thyromegaly Respiratory: no respiratory distress Auscultation: lungs clear to auscultation bilaterally Cardiovascular: Rate/Rhythm: regular rate and regular rhythm; not tachycardic Heart Sounds: normal S1 and normal S2; no murmur Extremities: no edema Gastrointestinal (Abdomen): Inspection/Auscultation: + abdomen distended; + abnormal bowel sounds (Decreased) Percussion/Palpation: + abdomen tender (All over mostly of right quadrants which is positive as well) and abdomen soft Psychiatric: A+Ox3, euthymic affect Lymphatic: no cervical or axillary lymphadenopathy Results & Data Results & Data Vital Signs (Past 12 Hours) Vital Signs Temp Pulse Pulse Resp BP BP Pulse Ox 07/07/23 16:45 36.9 C 64 15 137/75 91 07/07/23 17:18 36.9 C 70 17 125/57 L 94 07/07/23 16:25 36.7 C 77 17 135/74 94 07/07/23 16:15 71 13 136/61 99 07/07/23 16:05 71 14 134/59 L 99 07/07/23 15:59 36.1 C L 75 17 137/68 98 07/07/23 14:25 36.6 C 73 18 135/81 95 07/07/23 08:00 36.7 C 70 15 136/73 95 O2 Del Method O2 Flow Rate 07/07/23 16:45 Room Air 07/07/23 17:18 Room Air 07/07/23 16:25 Room Air 07/07/23 16:15 Oxymask 5 07/07/23 16:05 Oxymask 9 07/07/23 15:59 Oxymask 9 07/07/23 14:25 Room Air 07/07/23 08:00 Room Air Laboratory Results Short CBC 07/07/23 Range/Units 05:37 WBC 11.01 H (4.8-10.8) K/ul Hgb 10.6 L (14.0-18.0) g/dl Hct 30.8 L (42.0-52.0) % Plt Count 254 (130-400) K/uL BMP 07/07/23 05:37 Sodium 137 Potassium 3.3 L Chloride 106 Carbon Dioxide 24 BUN 10 Creatinine 0.74 Glucose 67 L Calcium 8.0 L Liver Function 07/07/23 Range/Units 05:37 Total Bilirubin 1.5 H D (0.2-1.0) mg/dl AST 50 H (13-39) U/L ALT 134 H (7-52) U/L Alkaline Phosphatase 153 H (34-104) U/L Albumin 3.1 L (3.4-5.0) gm/dl Medications Administered Current Inpatient Medications Acetaminophen (Acetaminophen 325 Mg Tab) 650 mg PO Q4H PRN PRN Reason: pain/fever Stop: 08/04/23 19:02 Fluticasone/Vilanterol (Fluticasone/Vilanterol 200/25mcg 14 Puffs/Inhaler) 1 puffs INH QAM [facility] Stop: 08/05/23 08:59 Last Admin: 07/07/23 07:51 Dose: 1 puffs Lactated Ringer's (Lr) 1,000 mls @ 150 mls/hr IV .Q6H40M ÁNGEL Stop: 08/04/23 19:02 Last Admin: 07/07/23 04:37 Dose: 150 mls/hr Piperacillin Sod/Tazobactam (Sod 4.5 gm/ Dextrose) 120 mls @ 30 mls/hr IV Q8H [facility]; Protocol Stop: 07/16/23 00:00 Last Infusion: 07/07/23 13:04 Dose: Infused Pantoprazole Sodium 40 mg/ (Syringe) 10 mls @ 5 mls/min IV DAILY@1100 [facility] Stop: 08/05/23 10:59 Last Admin: 07/07/23 13:05 Dose: 5 mls/min Methylphenidate HCl (Methylphenidate Hcl 10 Mg Tablet) 20 mg PO TID@0700,1100,1500 [facility] Stop: 07/19/23 20:59 Last Admin: 07/07/23 13:09 Dose: 20 mg Miscellaneous (Remove Nicoderm Patch) 1 each N/A DAILY@0859 [facility] Stop: 08/06/23 08:58 Last Admin: 07/07/23 07:49 Dose: 1 each Morphine Sulfate (Morphine Sulfate 4 Mg/Ml 1 Ml Carp\Vial) 4 mg IV Q6H PRN PRN Reason: severe Pain Stop: 07/19/23 19:02 Nicotine (Nicotine 14 Mg/24 Hr Patch) 14 mg TD QAM [facility] Stop: 08/05/23 10:29 Last Admin: 07/07/23 07:50 Dose: 14 mg Ondansetron HCl (Ondansetron Inj 2 Mg/Ml 2 Ml Vial) 4 mg IV Q6H PRN PRN Reason: Nausea Stop: 08/04/23 19:02 Oxycodone HCl (Oxycodone Hcl Ir 5 Mg Tab (Immediate Release)) 5 mg PO Q6H PRN PRN Reason: Moderate Pain (Scale 4, 5, 6) Stop: 07/19/23 19:02 Paroxetine HCl (Paroxetine Hcl 10 Mg Tab) 10 mg PO DAILY [facility] Stop: 08/05/23 08:59 Last Admin: 07/07/23 07:52 Dose: 10 mg (3) Pancreatitis Acute pancreatitis complication: unspecified Chronicity: acute Pancreatitis type: unspecified pancreatitis type Qualified Code(s): K85.90 - Acute pancreatitis without necrosis or infection, unspecified
[2023-07-08] MEDS: LACTATED RINGER'S 1,000 ML IV SCH (03:45)
--- NOTE | 2023-07-08 06:05 | Electrocardiogram Report ---
Test Reason : Blood Pressure : / mmHG Vent. Rate : 065 BPM Atrial Rate : 065 BPM P-R Int : 136 ms QRS Dur : 130 ms QT Int : 454 ms P-R-T Axes : -25 082 060 degrees QTc Int : 472 ms Normal sinus rhythm Right bundle branch block Abnormal ECG No previous ECGs available Confirmed by Mateo De Leon ([id number]) on 07/08/2023 6:04:58 AM Referred By: REFERRED SELF Confirmed By:Mateo De Leon
[2023-07-08] MEDS: METHYLPHENIDATE HCL 10 MG TABLET PO SCH ×2 (06:25→10:52)
[2023-07-08 06:31] LABS: Basophils # (auto) 0.07 K/uL (0-0.2); Basophils % (auto) 0.6 %; Eosinophils # (auto) 0.24 K/uL (0-0.50); Eosinophils % (auto) 1.9 %; Hematocrit (blood only) 33.3 % (42.0-52.0); Hemoglobin 11.2 g/dl (14.0-18.0); Immature Granulocytes # (auto) 0.27 K/uL (0.01-0.20); Immature Granulocytes % (auto) 2.1 %; Lymphocytes # (auto) 2.47 K/uL (1.2-3.4); Lymphocytes % (auto) 19.5 %; Mean Corpuscular Hemoglobin 23.1 pg (25.0-34.0); Mean Corpuscular Hgb Conc 33.6 g/dL (32.0-36.0); Mean Corpuscular Volume 68.7 fL (80.0-100.0); Monocytes # (auto) 1.01 K/uL (0.11-0.59); Neutrophils # (auto) 8.63 K/uL (1.40-6.50); Neutrophils % (auto) 67.9 %; RDW Coefficient of Variation 15.9 % (11.5-14.5); RDW Standard Deviation 38.2 fL (36.4-46.3); Red Blood Count 4.85 M/uL (4.70-6.10); White Blood Count 12.69 K/ul (4.8-10.8)
[2023-07-08 06:36] LABS: Mean Platelet Volume 11.4 fL (9.4-12.4); Platelet Count 311 K/uL (130-400)
[2023-07-08 06:53] LABS: Calcium 8.3 mg/dl (8.6-10.3); Creatinine Clr Calc Pharmacy 80.3 ml/min; Est GFR (African American) 104.9 ml/min; Est GFR (Non-African American) 90.5 ml/min; Phosphorus 2.3 mg/dl (2.5-4.9); Potassium 3.6 mmol/L (3.5-5.1)
[2023-07-08 06:58] LABS: Hypersegmented Neutrophils 1+; Microcytosis Present; Polychromasia 1+
[2023-07-08] MEDS: NICOTINE 14 MG/24 HR PATCH TD SCH (08:47)
[2023-07-08] MEDS: FLUTICASONE/VILANTEROL 200/25MCG 14 PUFFS/INHALER INH SCH (08:48)
[2023-07-08] MEDS: PARoxetine HCL 10 MG TAB PO SCH ×2 (08:49→09:04)
[2023-07-08] MEDS: PIPERACILLIN/TAZOBACTAM 4.5 GM in DEXTROSE 5% 100 ML IV SCH (08:50)
[2023-07-08] MEDS ORDERED: PANTOprazole 40 MG TAB PO SCH (09:00)
--- NOTE | 2023-07-08 09:03 | Surgery Progress Note ---
Date of Service July 08, 2023 Assessment & Plan (1) Pancreatitis: Plan: ERCP images and results were personally viewed by myself He did have choledocholithiasis which is likely the cause of his pancreatitis and pain over the weekend that brought him in Plan would be to increase his diet if he tolerates this he can be discharged with follow-up down in [place] with general surgery which is actually scheduled for tomorrow Leave drain in upon discharge Surgery will sign off at this time, please call with any questions or concerns (2) Status post laparoscopic cholecystectomy: Admission and Anticipated Discharge Date Admission Date: July 05, 2023 Subjective Patient seen and examined. No abdominal pain. Afebrile. Drain with minimal serosanguineous output. Physical Exam Constitutional: WD/WN, vitals as above Gastrointestinal (Abdomen): Soft, nontender, ecchymosis to the abdominal wall NITIN in the right upper quadrant with serosanguineous output Results & Data Vital Signs (Past 12 Hours) Vital Signs Temp Pulse Pulse Pulse Resp BP BP 07/08/23 07:08 36.9 C 67 18 146/67 H 07/08/23 03:11 36.7 C 66 20 126/67 07/07/23 21:32 36.8 C 70 18 142/68 H Pulse Ox O2 Del Method 07/08/23 07:08 95 Room Air 07/08/23 03:11 96 Room Air 07/07/23 21:32 96 Room Air PG Care Time/CCT Total # of Minutes Spent Total Time Spent with Patient: Total time spent is greater than 50% in coordination of care (as documented) at patient's floor/unit and/or counseling patient: Coding Level of Care Code 73697 SUB INP/OBS CARE 12/11MIN Diagnoses Pancreatitis K85.90 Acute pancreatitis complication: unspecified Chronicity: acute Pancreatitis type: unspecified pancreatitis type Status post laparoscopic cholecystectomy Z90.49 (1) Pancreatitis Acute pancreatitis complication: unspecified Chronicity: acute Pancreatitis type: unspecified pancreatitis type Qualified Code(s): K85.90 - Acute pancreatitis without necrosis or infection, unspecified
[2023-07-08 09:47] LABS: Albumin Level 3.4 gm/dl (3.4-5.0); Bilirubin Direct 0.4 mg/dl (0-0.2); Bilirubin,Total 1.2 mg/dl (0.2-1.0)
[2023-07-08 09:53] LABS: Total Protein 6.6 gm/dl (6.0-8.3)
--- NOTE | 2023-07-08 10:21 | Gastroenterology Progress Note ---
Date of Service July 08, 2023 Assessment & Plan (1) History of laparoscopic cholecystectomy: (2) Pancreatitis: (3) Choledocholithiasis: Plan Pt is a 68 yo male who is s/p lap payton on 07/02/2023, complicated by capsular tear, admitted w abd pain, elevated LFTs and lipase. CT abd/pelvis w 7.6cm fluid collection within maryan hepatis, ? possible bile leak. Patient underwent EUS and ERCP 07/07/2023. He was found to have a 6 cm fluid collection in the region of his gallbladder fossa and CBD stone, removed via biliary sphincterectomy. Biliary and pancreatic duct stents placed. He is clinically improved, LFTs decreasing. - Diet as tolerated - Antibiotic coverage for 10 days - Hold NSAIDs or high dose ASA x 1 week after biliary sphincterectomy. - Trend LFTs - Repeat ERCP 6 to 8 weeks for stent removal - GI to sign off; pls recall prn. Admission and Anticipated Discharge Date Admission Date: July 05, 2023 Subjective Pt denies fever, chills, CP, SOB. Reports abd pain is resolved. No n/v Review of Systems Review of Systems: All systems reviewed & are unremarkable except as noted in HPI & below Physical Exam Constitutional: WD/WN, vitals as above well groomed, cooperative and comfor table Eyes: PERRL, conjunctivae normal, anicteric sclerae ENMT: external ear and nose normal, oropharynx normal Respiratory: normal respiratory effort, lungs clear to auscultation Cardiovascular: RRR, no murmur, no edema Gastrointestinal (Abdomen): normal bowel sounds, soft, nontender, no hepatosplenomegaly (NITIN drain to RUQ w sangenous fluid ) Skin: no rashes, warm and dry no jaundice Neurologic: Motor/Sensory: no asterixis Psychiatric: A+Ox3, euthymic affect Lymphatic: no lymphedema Results & Data Vital Signs (Past 12 Hours) Vital Signs Temp Pulse Pulse Resp BP Pulse Ox O2 Del Method 07/08/23 07:08 36.9 C 67 18 146/67 H 95 Room Air 07/08/23 03:11 36.7 C 66 20 126/67 96 Room Air (2) Pancreatitis Acute pancreatitis complication: unspecified Chronicity: acute Pancreatitis type: unspecified pancreatitis type Qualified Code(s): K85.90 - Acute pancreatitis without necrosis or infection, unspecified
--- NOTE | 2023-07-08 17:10 | Communication Note ---
Date of Service: July 08, 2023 Attending addendum The patient was seen and examined in medical floor He is a status post ERCP and stent placement Has been feeling much better and does not have any significant abdominal pain No fever and or chills Has been ambulating in the room without any difficulties On examination Lying in bed comfortably Remains hemodynamically stable Abdomen-soft, mildly tender in the right upper quadrant, bowel sound present Extremities-negative for any edema His labs and imaging studies reviewed Medications reviewed as well He was discharged home in a reasonable medical condition with appropriate follow-up as an outpatient Agree with assessment and plan as outlined above by Nicole Mayes
--- NOTE | 2023-07-08 18:42 | Discharge Summary ---
Date of Service July 08, 2023 Admission HPI Per Admitting Provider 68-year-old male with PMH COPD, tobacco abuse, GERD, osteoporosis, Paget disease, depression, ADHD, beta thalassemia trait, and other problems as below who presents to the ED for evaluation of abdominal pain. History obtained from the patient and at the bedside as well as review of outpatient PCP and recent inpatient records. Patient seen at [facility] ED on 06/30 for abdominal pain and was diagnosed with biliary colic. Patient previously scheduled for elective cholecystectomy later in the year. Was evaluated by general surgery on 06/30 who felt it was reasonable to maintain that plan. Patient's abdominal pain returned, he called the surgeon's office, who subsequently directly admitted him for laparoscopic cholecystectomy on 07/02. Patient did have a capsular tear in the surgery and was monitored for 24 hours and was discharged home on 07/04 with NITIN drain in place. Patient reports that this morning at 7 AM, he had sudden onset abdominal pain. Patient describes the pain as diffuse. He reports associated nausea however no vomiting. He reports feeling chills however did not take his temperature. He was initially seen at [facility] ED however eloped and came to [facility] for evaluation. Patient denies chest pain or shortness of breath. No lightheadedness, dizziness, diaphoresis, syncopal events. He denies urinary symptoms. In the ED, patient is hemodynamically stable. Labs show WBC 10.5 K, transaminitis, lipase 4900. CT ABD/pelvis shows Postoperative changes compatible with recent laparoscopic cholecystectomy. There is a postoperative fluid collection within the maryan hepatis measuring up to 7.6 cm with a surgical drainage catheter coursing along the anterior aspect of the collection. Findings could be correlated with nuclear medicine hepatobiliary scan if there is clinical concern for a bile leak. Findings suggestive of associated mild acute pancreatitis. Patient was given IV Tylenol, IV Zofran, IV Zosyn, IVF. Admission Exam Per Admitting Provider Constitutional: WD/WN, vitals as above Eyes: PERRL, conjunctivae normal, anicteric sclerae ENMT: external ear and nose normal, oropharynx normal Respiratory: normal respiratory effort, lungs clear to auscultation Cardiovascular: Rate/Rhythm: regular rate and regular rhythm Vessels: normal peripheral pulses Extremities: no edema Gastrointestinal (Abdomen): Inspection/Auscultation: normal bowel sounds Percussion/Palpation: + abdomen tender (diffusely tender to palpation) and abdomen soft RUQ Drain in place draining serosanguineous drainage, dressings present over laparoscopic incision sites, ecchymosis across the mid/lower abdomen Musculoskeletal: no cyanosis or clubbing, extremities motor strength 5/5 Skin: no rashes, warm and dry Neurologic: PERRL, EOMI, accommodation nl, no face palsy, no dysarthria Psychiatric: A+Ox3, euthymic affect Principal Diagnosis Choledocholithiasis Pancreatitis Discharge Exam Constitutional WD/WN, vitals as above no acute distress Respiratory normal respiratory effort, lungs clear to auscultation Cardiovascular Rate/Rhythm: regular rate and regular rhythm Vessels: normal peripheral pulses Extremities: no edema Gastrointestinal (Abdomen) Percussion/Palpation: + abdomen tender (Minimal incisional tenderness present) and abdomen soft Milagros-incisional ecchymosis present, NITIN drain in place draining serosanguineous drainage, dressing CDI Skin no rashes, warm and dry Neurologic no focal motor deficits Psychiatric A+Ox3, euthymic affect Discharge Data Allergies Allergy/AdvReac Type Severity Reaction Status Date / Time coffee (Coffea arabica) AdvReac Dizziness Verified 07/05/23 23:31 Consultations 07/05/23 19:03 Consult General Surgery Routine 07/06/23 08:15 Consult Gastroenterology Routine Procedures Performed Operation Date: 07/07/23 07:50 Actual Procedures p Endoscopic Ultrasonography Upper - Isael Pagan DO p Endoscopic Retrograde Cholangiopancreatogram - Isael Pagan, DO Ordered Studies Laboratory Results WBC 12.69 K/ul (4.8-10.8) H 07/08/23 06:03 RBC 4.85 M/uL (4.70-6.10) 07/08/23 06:03 Hgb 11.2 g/dl (14.0-18.0) L 07/08/23 06:03 POC Hgb 12.9 g/dl (14.0-18.0) L 07/05/23 14:45 Hct 33.3 % (42.0-52.0) L 07/08/23 06:03 POC Hct 38 % (42-52) L 07/05/23 14:45 MCV 68.7 fL (80.0-100.0) L 07/08/23 06:03 MCH 23.1 pg (25.0-34.0) L 07/08/23 06:03 MCHC 33.6 g/dL (32.0-36.0) 07/08/23 06:03 RDW Std Deviation 38.2 fL (36.4-46.3) 07/08/23 06:03 RDW Coeff of Jackie 15.9 % (11.5-14.5) H 07/08/23 06:03 Plt Count 311 K/uL (130-400) 07/08/23 06:03 MPV 11.4 fL (9.4-12.4) 07/08/23 06:03 Immature Gran % (Auto) 2.1 % 07/08/23 06:03 Neut % (Auto) 67.9 % 07/08/23 06:03 Lymph % (Auto) 19.5 % 07/08/23 06:03 Cocke % (Auto) 8.0 % 07/08/23 06:03 Eos % (Auto) 1.9 % 07/08/23 06:03 Baso % (Auto) 0.6 % 07/08/23 06:03 Neut # (Auto) 8.63 K/uL (1.40-6.50) H 07/08/23 06:03 Lymph # (Auto) 2.47 K/uL (1.2-3.4) 07/08/23 06:03 Cocke # (Auto) 1.01 K/uL (0.11-0.59) H 07/08/23 06:03 Eos # (Auto) 0.24 K/uL (0-0.50) 07/08/23 06:03 Baso # (Auto) 0.07 K/uL (0-0.2) 07/08/23 06:03 Immature Gran # (Auto) 0.27 K/uL (0.01-0.20) H 07/08/23 06:03 Hypersegmented Neuts 1+ 07/08/23 06:03 Polychromasia 1+ 07/08/23 06:03 Hypochromasia Present 07/07/23 05:37 Microcytosis Present 07/08/23 06:03 POC Sodium 142 mmol/L (135-144) 07/05/23 14:45 Sodium 138 mmol/L (136-145) 07/08/23 06:03 POC Potassium 3.3 mmol/L (3.3-5.0) 07/05/23 14:45 Potassium 3.6 mmol/L (3.5-5.1) 07/08/23 06:03 POC Chloride 103 mmol/L (101-112) 07/05/23 14:45 Chloride 104 mmol/L (98-107) 07/08/23 06:03 Carbon Dioxide 24 mmol/L (21-32) 07/08/23 06:03 POC Total CO2 26 mmol/L (24-31) 07/05/23 14:45 Anion Gap 10 (3-11) 07/08/23 06:03 POC Anion Gap 18.0 mmol/L (16-25) 07/05/23 14:45 POC BUN 10 mg/dl (7-18) 07/05/23 14:45 BUN 8 mg/dl (6-23) 07/08/23 06:03 Creatinine 0.80 mg/dl (0.6-1.4) 07/08/23 06:03 POC Creatinine 0.8 mg/dl (0.6-1.3) 07/05/23 14:45 Est Cr Clr Drug Dosing 80.3 ml/min 07/08/23 06:03 Est GFR ( Amer) 104.9 ml/min 07/08/23 06:03 Est GFR (Non-Af Amer) 90.5 ml/min 07/08/23 06:03 BUN/Creatinine Ratio 10.0 (10-20) 07/08/23 06:03 Glucose 65 mg/dl (70-99(Fasting)) L 07/08/23 06:03 POC Glucose (other) 93 mg/dl (70-99) 07/05/23 14:45 Calcium 8.3 mg/dl (8.6-10.3) L 07/08/23 06:03 POC Ioniz Calcium Emily 1.15 mmol/l (1.12-1.32) 07/05/23 14:45 Phosphorus 2.3 mg/dl (2.5-4.9) L 07/08/23 06:03 Magnesium 2.0 mg/dl (1.7-2.4) 07/08/23 06:03 Total Bilirubin 1.2 mg/dl (0.2-1.0) H 07/08/23 06:03 Direct Bilirubin 0.4 mg/dl (0-0.2) H 07/08/23 06:03 AST 24 U/L (13-39) 07/08/23 06:03 ALT 90 U/L (7-52) H 07/08/23 06:03 Alkaline Phosphatase 151 U/L (34-104) H 07/08/23 06:03 Total Protein 6.6 gm/dl (6.0-8.3) 07/08/23 06:03 Albumin 3.4 gm/dl (3.4-5.0) 07/08/23 06:03 Globulin 2.9 gm/dl (2.5-4.0) 07/07/23 05:37 Albumin/Globulin Ratio 1.1 (0.9-2) 07/07/23 05:37 Lipase 87 U/L (11-82) H 07/07/23 05:37 Urine Color Yellow 07/05/23 14:25 Urine Appearance Clear (Clear) 07/05/23 14:25 Urine pH 8.5 (4.5-7.5) H 07/05/23 14:25 Ur Specific [place] 1.009 (1.000-1.030) 07/05/23 14:25 Urine Protein Negative (Negative) 07/05/23 14:25 Urine Glucose (UA) Negative (Negative) 07/05/23 14:25 Urine Ketones Negative (Negative) 07/05/23 14:25 Urine Blood Negative (Negative) 07/05/23 14:25 Urine Nitrite Negative (Negative) 07/05/23 14:25 Urine Bilirubin Negative (Negative) 07/05/23 14:25 Urine Urobilinogen Positive (Negative) H 07/05/23 14:25 Ur Leukocyte Esterase Negative (Negative) 07/05/23 14:25 Impressions Abdomen/Pelvis CT 07/05/23 14:[address] WITH IV CONTRAST CT DOSE: 1042.06 mGy.cm HISTORY: Acute right upper quadrant abdominal pain h/o of payton and post op bleeding, NITIN in place TECHNIQUE: Multiaxial CT images of the abdomen and pelvis were performed following the IV administration of 92 cc of Optiray, A dose lowering technique was utilized adhering to the principles of ALARA. COMPARISON STUDY: None. FINDINGS: Mild subsegmental bibasilar atelectasis/scarring. A few scattered low suspicion solid pulmonary nodules measuring up to 3 mm. Trace right pleural effusion. Unremarkable spleen and adrenal glands. Mild interstitial peripancreatic edema of the pancreatic head, uncinate process and neck. Mild wall thickening of the distal stomach and duodenum. There are a few subcentimeter hypodensities noted within the liver which are too small to characterize and may represent cysts. Patent portal vein. Cholecystectomy clips within the maryan hepatis. Mild wall thickening and enhancement within the common bile duct. Postoperative fluid collection within the maryan hepatis measures 5.3 x 7.6 x 3.5 cm containing a few foci of air. Surgical drainage catheter courses along the anterior aspect of this collection with distal tip projected superiorly. Additional trace fluid tracks along the pancreatic or duodenal groove and into the right paracolic gutter. There are a few nonobstructing calculi in the left kidney measuring up to 3 mm. Bilateral renal cysts. No hydronephrosis. Prostatomegaly. Moderate bladder wall thickening with partial distention. Atherosclerosis of the aorta. Retroaortic left renal vein. No lymphadenopathy. Tiny hiatal hernia with mild distal esophageal wall thickening. Moderate fecal retention. Normal appendix. No acute fracture. Pagetoid changes of the right bony pelvis. IMPRESSION: 1. Postoperative changes compatible with recent laparoscopic cholecystectomy. There is a postoperative fluid collection within the maryan hepatis measuring up to 7.6 cm with a surgical drainage catheter coursing along the anterior aspect of the collection. Findings could be correlated with nuclear medicine hepatobiliary scan if there is clinical concern for a bile leak. 2. Findings suggestive of associated mild acute pancreatitis. 3. Borderline enlarged lymph nodes within the maryan hepatis are likely reactive. 4. No bowel obstruction. 5. Normal appendix. 6. Left nephrolithiasis. 7. Trace right pleural effusion. 8. Pagetoid osseous changes of the bony pelvis. ACT 112: Negative or not required by law. The above report was generated using voice recognition software. It may contain grammatical, syntax or spelling errors. Electronically signed by: Amauri Salter M.D. 07/05/2023 3:48 PM Hepatobiliary Scan Nuclear Medicine 07/07/23 10:30 NM hepatobiliary CLINICAL HISTORY: s/p lap payton, poss bile leak TECHNIQUE: Following the intravenous injection of 4.9 mCi of Tc-99m labeled Technetium 99m mebrofenin, multiple images of the upper abdomen were obtained in the anterior projection with uptake measurements of the gallbladder obtained. Comparison: Comparison is made to CT abdomen pelvis 07/05/2023 FINDINGS: Patient is status post cholecystomy. No biliary leak is seen. IMPRESSION: No biliary leak is seen. Reference: Normal gallbladder ejection fraction is greater than 33%. ACT 112: Negative or not required by law. Electronically signed by: Bill Orozco M.D. 07/07/2023 12:13 PM Hospital Course (1) History of laparoscopic cholecystectomy: (2) Transaminitis: (3) Gallstone pancreatitis: Patient presenting from home with reports of abdominal pain. S/p laparoscopic cholecystectomy on 07/[address] Aguilera at [facility], complicated by hepatic capsular tear and NITIN drain placed. In the ED, patient on to have transaminitis and elevated lipase. CT ABD/pelvis showing postoperative changes compatible with recent laparoscopic cholecystectomy. There is a postoperative fluid collection within the maryan hepatis measuring up to 7.6 cm with a surgical drainage catheter coursing along the anterior aspect of the collection. Findings could be correlated with nuclear medicine hepatobiliary scan if there is clinical concern for a bile leak. Findings suggestive of associated mild acute pancreatitis. Status post ERCP - Noted to have choledocholithiasis and the stones were removed, no bile leak, status postplacement of biliary and pancreatic stent Will need ERCP and stent extraction in about 6 weeks LFTs improved after ERCP and stone extraction Patient received IV Zosyn while admitted, will discharge on Augmentin to complete 10-day course NITIN drain to remain in place. Patient requesting to follow-up with [facility] as a new patient and also [facility] general surgery. Appointments made. Patient agreeable to follow-up with [facility] for stent removal. (4) COPD (chronic obstructive pulmonary disease): No signs of acute exacerbation (5) Tobacco abuse: Tobacco cessation advised, nicotine patch provided (6) GERD (gastroesophageal reflux disease): PPI (7) ADHD: (8) Depression: Stable, continue methylphenidate and paroxetine Total Time Total Time Spent Total Time Spent (In Minutes): 40 Discharge Plan Discharge Items Patient Disposition: Home - Self-Care Reason For Visit: Abdominal Pain, Nausea Discharge Diagnosis: Choledocholithiasis (stone in the common bile duct) Pancreatitis Activity: Resume your previous activity Non-emergency contact: Primary Care Provider, Surgeon and Parish Visitor Call non-emergency contact if: you have any medication questions, your symptoms worsen, your pain is not controlled and you have a fever Follow-up/Referrals: Sher Thomas CRNP [Nurse Practitioner] - 07/11/23 1:00 pm (*Please note that the [facility] in [place] is NOT accepting new patients. This appointment is in [place].*) Sanjay Merino DO [Physician] - 07/14/23 1:30 pm (*Please note that the appointment with Dr Merino is at the [place] office at [address].*) Isael Pagan DO [Physician] - (The GI office will contact you for a follow up appointment. ) Diet: Low Fat Addtl Attending Provider Instructions: You came to the hospital for evaluation of abdominal pain and nausea. You were found to have a stone in your common bile duct and signs of pancreatitis. You had a procedure to remove the stone and had 2 stents placed -- you will need to have the stents removed in 6-8 weeks, the GI office will call you with an appointment. You were treated with IV antibiotics and will need to take oral antibiotics for an additional 8 days, take Augmentin 1 tab twice daily. Keep drain in place until you follow up surgery. Avoid NSAIDs (Aleve, naproxen, ibuprofen, Motrin, Advil) and full dose aspirin (325 mg) for the next 1 week. You are requesting to follow-up with a new [facility] PCP and [facility] general surgery. Appointments have been made for you. It was a pleasure taking care of you. If you need to reach a member the [facility] hospitalist team at [facility], please call [phone]. CARLOS Tapia Pending Studies at Discharge: No Stand-Alone Forms: My [facility] [employer], Smoking Cessation Medications and DC Order Prescriptions: New amoxicillin-pot clavulanate 875-125 mg tablet 1 tab PO BID Qty: 16 0RF Continued paroxetine HCl 10 mg tablet 10 mg PO DAILY methylphenidate HCl 20 mg tablet 20 mg PO TID simethicone 125 mg tablet,chewable 125 mg PO QID PRN (Reason: other) albuterol sulfate [Proventil HFA] 90 mcg/actuation Hfa Aerosol Inhaler 1 inh INHALATION DAILY PRN (Reason: Wheezing) loratadine 10 mg tablet 10 mg PO QAM PRN (Reason: Other) oxycodone 5 mg tablet See Rx Instructions .ROUTE .COMPLEX Rx Instructions: as directed fluticasone furoate-vilanterol [Breo Ellipta] 200-25 mcg/dose blister with device 1 inh INHALATION QAM naloxone 4 mg/actuation spray,non-aerosol See Rx Instructions .ROUTE .COMPLEX Rx Instructions: as directed omeprazole 40 mg capsule,delayed release(DR/EC) 40 mg PO DAILY Discontinued naproxen 500 mg tablet 500 mg PO Q12H Discharge Orders: Discharge Order (Routine); Ordered 07/08/23 Ordered By: Nicole White/Other Patient Handouts: Low-Fat Cooking Tips, Chad Weldon Drain Tube Dc, ED Diet, Low Fat Admission Data Admit Date/Time: 07/05/23 16:41 Attending Provider: Malcolm Mayes Admit Provider: Cecilia Guillen Primary Care Provider: Yelitza Pendleton Other Providers: Cecilia Guillen ; Harlan Gibbs ; Emiliano Tobar ; Surjit Barker ; Tawnya Recio ; Lori Love ; Mary Grace Adams ; Beth Mixon ; Kian Russell ; Nick Andre ; Isael Pagan ; Grover Chester ; Jonah Morales ; Maggie Grant ; Minoo Portillo ; Phoebe Brar ; Homa Love ; Dell Rainey ; Albino Barahona ; Ambrocio Shaffer ; Jimena Lantigua ; Royal Enriquez Jr Other Interventions: Discharge Summary Assessment (RN) Last Done: 07/08/23 15:25 Supervising Physician Co-Signing Physician Notes Date of Service: July 08, 2023 Attending addendum The patient was seen and examined in medical floor He is a status post ERCP and stent placement Has been feeling much better and does not have any significant abdominal pain No fever and or chills Has been ambulating in the room without any difficulties On examination Lying in bed comfortably Remains hemodynamically stable Abdomen-soft, mildly tender in the right upper quadrant, bowel sound present Extremities-negative for any edema His labs and imaging studies reviewed Medications reviewed as well He was discharged home in a reasonable medical condition with appropriate follow-up as an outpatient Agree with assessment and plan as outlined above by Nicole Mayes
== END 2023-07-08 15:56 | disposition home or self-care (01) | DRG 444 ==
LOC: ED 13:15 → 3E 16:41 → SUATTDRO 16:41 → 3E 18:06